=== PATIENT | male | born 1950 | race Caucasian/White ===

== ENCOUNTER 2016-06-25 09:22 | Outpatient (RCR) | payer BC ==
[~2016-06-25 09:22] MED LIST: ASPI-999 PO; METO-387 PO
[2016-06-25 09:39] LABS: BASOPHILS % (AUTO) 0 % (0-10); EOSINOPHILS # (AUTO) 0.1 10^3/uL (0.0-0.3); EOSINOPHILS % (AUTO) 2 % (0-10); LYMPHOCYTES % (AUTO) 23 % (12-44); MEAN CORPUSCULAR HEMOGLOBIN 31 PG (25-34); MEAN CORPUSCULAR HGB CONC 35 G/DL (32-36); MEAN CORPUSCULAR VOLUME 89 FL (80-99); MEAN PLATELET VOLUME 8.8 FL (7.4-10.4); MONOCYTES # (AUTO) 0.4 X 10^3 (0.0-1.0); MONOCYTES % (AUTO) 9 % (0-12); NEUTROPHILS % (AUTO) 66 % (42-75); PLATELET COUNT 162 10^3/uL (130-400); RED CELL DISTRIBUTION WIDTH 14.4 % (10.0-14.5); WHITE BLOOD COUNT 4.6 10^3/uL (4.3-11.0)
[2016-06-25 10:17] LABS: ALANINE AMINOTRANSFERASE 32 U/L (0-55); ALBUMIN 4.3 G/DL (3.2-4.5); ANION GAP 8 MMOL/L (5-14); ASPARTATE AMINO TRANSFERASE 23 U/L (5-34); BILIRUBIN,TOTAL 1.1 MG/DL (0.1-1.0); BLOOD UREA NITROGEN 11 MG/DL (7-18); BUN/CREATININE RATIO 11; CALCIUM 9.1 MG/DL (8.5-10.1); CARBON DIOXIDE 27 MMOL/L (21-32); CHLORIDE 106 MMOL/L (98-107); CREATININE SERUM 1.01 MG/DL (0.60-1.30); GFR ESTIMATED > 60; GLUCOSE 101 MG/DL (70-105); POTASSIUM 4.1 MMOL/L (3.6-5.0); SODIUM 141 MMOL/L (135-145); TOTAL PROTEIN 6.5 G/DL (6.4-8.2)
== END 2016-09-23 | disposition home or self-care (01) ==
LOC: ONC 09:22
PROVIDERS: ATTEND Internal Medicine Hematology & Oncology
DX: Z08 Encounter for follow-up examination after completed treatment for malignant neoplasm (principal); Z85.831 Personal history of malignant neoplasm of soft tissue; Z86.010 Personal history of colon polyps; Z79.899 Other long term (current) drug therapy
CPT/HCPCS: 36415; 80053; 85025; 99213

== ENCOUNTER 2017-07-01 08:50 | Outpatient (RCR) | payer BC ==
[2017-07-01 09:01] LABS: BASOPHILS % (AUTO) 1 % (0-10); EOSINOPHILS # (AUTO) 0.1 10^3/uL (0.0-0.3); EOSINOPHILS % (AUTO) 2 % (0-10); HEMATOCRIT 40 % (40-54); HEMOGLOBIN 13.8 G/DL (13.3-17.7); LYMPHOCYTES % (AUTO) 21 % (12-44); MEAN CORPUSCULAR HEMOGLOBIN 31 PG (25-34); MEAN CORPUSCULAR HGB CONC 34 G/DL (32-36); MEAN CORPUSCULAR VOLUME 91 FL (80-99); MEAN PLATELET VOLUME 9.2 FL (7.4-10.4); MONOCYTES # (AUTO) 0.4 X 10^3 (0.0-1.0); MONOCYTES % (AUTO) 9 % (0-12); NEUTROPHILS # (AUTO) 3.1 X 10^3 (1.8-7.8); NEUTROPHILS % (AUTO) 68 % (42-75); PLATELET COUNT 171 10^3/uL (130-400); RED BLOOD COUNT 4.43 10^6/uL (4.35-5.85); RED CELL DISTRIBUTION WIDTH 14.1 % (10.0-14.5); WHITE BLOOD COUNT 4.7 10^3/uL (4.3-11.0)
[2017-07-01 09:25] LABS: ALANINE AMINOTRANSFERASE 31 U/L (0-55); ALBUMIN 4.4 GM/DL (3.2-4.5); ALKALINE PHOSPHATASE 66 U/L (40-136); BILIRUBIN,TOTAL 0.9 MG/DL (0.1-1.0); BUN/CREATININE RATIO 13; CALCIUM 9.3 MG/DL (8.5-10.1); CARBON DIOXIDE 27 MMOL/L (21-32); CHLORIDE 104 MMOL/L (98-107); CREATININE SERUM 0.95 MG/DL (0.60-1.30); GFR ESTIMATED > 60; GLUCOSE 96 MG/DL (70-105); POTASSIUM 4.3 MMOL/L (3.6-5.0); SODIUM 140 MMOL/L (135-145); TOTAL PROTEIN 6.7 GM/DL (6.4-8.2)
== END 2017-09-29 | disposition home or self-care (01) ==
LOC: ONC 08:50
PROVIDERS: ATTEND Internal Medicine Hematology & Oncology
DX: Z08 Encounter for follow-up examination after completed treatment for malignant neoplasm (principal); Z85.831 Personal history of malignant neoplasm of soft tissue; Z86.010 Personal history of colon polyps; Z79.899 Other long term (current) drug therapy
CPT/HCPCS: 36415; 80053; 83615; 85025; 99213

== ENCOUNTER → 2019-03-06 | Outpatient (CLI) | payer BC ==
--- NOTE | 2019-03-06 12:34 | Diagnostic Imaging Report ---
PROCEDURE: US left lower extremity venous. TECHNIQUE: Multiple real-time grayscale images were obtained over the left lower extremity in various projections. Additional duplex Doppler and color Doppler images were also obtained. INDICATION: Left leg swelling. FINDINGS: There is no evidence of a left lower extremity DVT. A left lower extremity deep venous system demonstrates normal compressibility with normal response to augmentation and Valsalva. No fluid collection or mass is seen. IMPRESSION: No evidence of left lower extremity DVT. Dictated by: Dictated on workstation # [id number]
== END ==
LOC: RAD 10:50
PROVIDERS: ATTEND Internal Medicine Cardiovascular Disease
DX: M79.89 Other specified soft tissue disorders (principal)

== ENCOUNTER 2019-03-28 14:48 | Outpatient (CLI) | payer BC ==
[~2019-03-28] VITALS: Ht 185 cm; Wt 100.0 kg
[2019-03-28] MEDS ORDERED: LISI10TA2 PO (15:25)
[2019-03-28] MEDS ORDERED: ASPI-999 PO (15:25)
[2019-03-28] MEDS ORDERED: TAMS0.4C98 PO (15:25)
[2019-03-28] MEDS ORDERED: DILT240C90 PO (15:25)
== END 2019-03-28 15:00 | disposition home or self-care (01) ==
LOC: PREOP 14:48
PROVIDERS: ATTEND Surgery
DX: Z01.818 Encounter for other preprocedural examination (principal)

== ENCOUNTER 2019-04-10 17:23 | Emergency (ER) | payer BC ==
[~2019-04-10] VITALS: Ht 185.4 cm; Wt 100.0 kg
[~2019-04-10 17:23] MED LIST changes: +DILT240C90 PO; +LISI10TA2 PO; -METO-387 PO; +MTP25TSR PO; +TMSL.4C PO
[2019-04-10] MEDS ORDERED: NS IV 1000 ML 1,000 ML IV SCH ×2 (17:28→18:17)
[2019-04-10 17:36] LABS: BASOPHILS % (AUTO) 0 % (0-10); EOSINOPHILS # (AUTO) 0.1 10^3/uL (0.0-0.3); EOSINOPHILS % (AUTO) 2 % (0-10); HEMATOCRIT 40 % (40-54); HEMOGLOBIN 13.8 G/DL (13.3-17.7); LYMPHOCYTES # (AUTO) 1.5 X 10^3 (1.0-4.0); LYMPHOCYTES % (AUTO) 28 % (12-44); MEAN CORPUSCULAR HEMOGLOBIN 31 PG (25-34); MEAN CORPUSCULAR HGB CONC 34 G/DL (32-36); MEAN CORPUSCULAR VOLUME 89 FL (80-99); MEAN PLATELET VOLUME 9.5 FL (7.4-10.4); MONOCYTES # (AUTO) 0.5 X 10^3 (0.0-1.0); MONOCYTES % (AUTO) 9 % (0-12); NEUTROPHILS # (AUTO) 3.4 X 10^3 (1.8-7.8); NEUTROPHILS % (AUTO) 61 % (42-75); PLATELET COUNT 181 10^3/uL (130-400); RED CELL DISTRIBUTION WIDTH 13.9 % (10.0-14.5); WHITE BLOOD COUNT 5.5 10^3/uL (4.3-11.0)
[2019-04-10 17:51] LABS: ALBUMIN 4.5 GM/DL (3.2-4.5); BILIRUBIN,TOTAL 0.6 MG/DL (0.1-1.0); CREATININE SERUM 1.24 MG/DL (0.60-1.30); POTASSIUM 3.7 MMOL/L (3.6-5.0); TOTAL PROTEIN 6.9 GM/DL (6.4-8.2)
[2019-04-10 17:57] LABS: PROTHROMBIN TIME PATIENT 13.6 SEC (12.2-14.7)
--- NOTE | 2019-04-10 18:11 | ED GI ---
General Chief Complaint: Abdominal/GI Problems Stated Complaint: DIZZINESS Nursing Triage Note: Pt to ED via EMS. Pt reports having a colonoscopy performed by Dr. Street last Wednesday. Pt reports no complications until today. Pt went to restroom and thought was going to have a bowel movement. Toilet was then filled with blood. Pt went back to desk and became very weak. Pt called boss and stated, "I am going down." Pt's boss called EMS. Sepsis Screen: No Definite Risk Source of Information: Patient, Spouse Exam Limitations: No Limitations History of Present Illness Date Seen by Provider: Apr 10, 2019 Time Seen by Provider: 17:57 Initial Comments Patient presents to ER by EMS from work with chief complaint that he had some rumbling in his abdomen and went to the bathroom and had a large red bloody stool. He says it was loose. He had an normal bowel movement earlier today that was unremarkable. He had colonoscopy [address] Street for polyp removals. He's had a history of partial colectomy secondary to diverticulitis in the past as well as multiple endoscopies for polyps. He denies a history of FAP. This is the first time she's ever had bleeding after a colonoscopy. He is not having any abdominal discomfort now. He says he got worried about this started feeling lightheaded like he does not pass out so he called his boss to call Luanne Pierre for them because as they were walking out of his office he had to s it down because he felt like his about to faint. He has no history of passing out. He is on 81 mg aspirin daily but no blood thinners or other antiplatelets. He does take lisinopril and diltiazem. Allergies and Home Medications Allergies Coded Allergies: No Known Drug Allergies (Unverified , 03/28/19) Home Medications Aspirin 81 Mg Tab.chew, 81 MG PO DAILY, (Reported) Diltiazem HCl 240 Mg Cap.er.24h, 240 MG PO DAILY, (Reported) Lisinopril 10 Mg Tablet, 10 MG PO DAILY, (Reported) Tamsulosin HCl 0.4 Mg Cap, 0.4 MG PO DAILY, (Reported) Patient Home Medication List Home Medication List Reviewed: Yes Review of Systems Review of Systems Constitutional: No chills, No fever, No malaise EENTM: No Blurred Vision, No Double Vision Respiratory: Denies Cough, Denies Shortness of Air Cardiovascular: Denies Chest Pain, Denies Lightheadedness Gastrointestinal: See HPI; Denies Constipated; Diarrhea; Denies Nausea Genitourinary: Denies Burning, Denies Discharge Musculoskeletal: No back pain, No joint pain All Other Systems Reviewed Negative Unless Noted: Yes Past Umoaukg-Qqupxk-Usclpw Hx Patient Social History Alcohol Use: Denies Use Recreational Drug Use: No Smoking Status: Never a Smoker Former Smoker, Quit: Jul 14, 1977 2nd Hand Smoke Exposure: Yes Recent Foreign Travel: No Contact w/Someone Who Travel: No Recent Infectious Disease Expo: No Recent Hopitalizations: No Immunizations Up To Date Tetanus Booster (TDap): More than 5yrs PED Vaccines UTD: No Seasonal Allergies Seasonal Allergies: No Past Medical History Surgeries: Yes (partial COLON RESECTION FOR CANCEROUS POLYP, LUMP FROM LEG) Abdominal Respiratory: No Cardiac: Yes (recent stress test-palpations) Hypertension, Irregular Heartbeat Neurological: No Reproductive Disorders: No Sexually Transmitted Disease: No HIV/AIDS: No Genitourinary: No Gastrointestinal: Yes (HX OF POLYPS, COLON CANCER) Polyps Musculoskeletal: No Endocrine: No HEENT: No Loss of Vision: Denies Hearing Impairment: Denies Cancer: Yes Colon Did You Recieve Any Treatments: Yes What Type of Treatment Did You: Surgical Intervention Psychosocial: No Integumentary: No Blood Disorders: No Adverse Reaction/Blood Tranf: No (N/A) Family Medical History No Pertinent Family Hx Physical Exam Vital Signs Vital Signs - First Documented 04/10/19 17:23 Temp 36.9 Pulse 64 Resp 15 B/P (MAP) 94/52 (66) Pulse Ox 98 O2 Delivery Room Air Capillary Refill : Less Than 3 Seconds Height/Weight/BMI Height: 6'1.00" Weight: 213lbs. 0.0oz. 96.331065mz; 29.00 BMI Method:Stated General Appearance: WD/WN, no apparent distress HEENT: PERRL/EOMI, pharynx normal Neck: full range of motion, normal inspection Respiratory: no respiratory distress, no accessory muscle use Cardiovascular: normal peripheral pulses, regular rate, rhythm Gastrointestinal: normal bowel sounds, non tender, soft, no organomegaly, other (Negative for mesenteric signs) Neurologic/Psychiatric: alert, normal mood/affect, oriented x 3 Skin: normal color, warm/dry Progress/Results/Core Measures Results/Orders Lab Results Laboratory Tests Test 04/10/19 17:25 Range/Units White Blood Count 5.5 4.3-11.0 10^3/uL Red Blood Count 4.51 4.35-5.85 10^6/uL Hemoglobin 13.8 13.3-17.7 G/DL Hematocrit 40 40-54 % Mean Corpuscular Volume 89 80-99 FL Mean Corpuscular Hemoglobin 31 25-34 PG Mean Corpuscular Hemoglobin Concent 34 32-36 G/DL Red Cell Distribution Width 13.9 10.0-14.5 % Platelet Count 181 130-400 10^3/uL Mean Platelet Volume 9.5 7.4-10.4 FL Neutrophils (%) (Auto) 61 42-75 % Lymphocytes (%) (Auto) 28 12-44 % Monocytes (%) (Auto) 9 0-12 % Eosinophils (%) (Auto) 2 0-10 % Basophils (%) (Auto) 0 0-10 % Neutrophils # (Auto) 3.4 1.8-7.8 X 10^3 Lymphocytes # (Auto) 1.5 1.0-4.0 X 10^3 Monocytes # (Auto) 0.5 0.0-1.0 X 10^3 Eosinophils # (Auto) 0.1 0.0-0.3 10^3/uL Basophils # (Auto) 0.0 0.0-0.1 10^3/uL Prothrombin Time 13.6 12.2-14.7 SEC INR Comment 1.0 0.8-1.4 Activated Partial Thromboplast Time 23 L 24-35 SEC Sodium Level 138 135-145 MMOL/L Potassium Level 3.7 3.6-5.0 MMOL/L Chloride Level 103 98-107 MMOL/L Carbon Dioxide Level 22 21-32 MMOL/L Anion Gap 13 5-14 MMOL/L Blood Urea Nitrogen 15 7-18 MG/DL Creatinine 1.24 0.60-1.30 MG/DL Estimat Glomerular Filtration Rate 58 BUN/Creatinine Ratio 12 Glucose Level 113 H 70-105 MG/DL Calcium Level 9.0 8.5-10.1 MG/DL Corrected Calcium 8.6 8.5-10.1 MG/DL Total Bilirubin 0.6 0.1-1.0 MG/DL Aspartate Amino Transf (AST/SGOT) 15 5-34 U/L Alanine Aminotransferase (ALT/SGPT) 19 0-55 U/L Alkaline Phosphatase 65 40-136 U/L Total Protein 6.9 6.4-8.2 GM/DL Albumin 4.5 3.2-4.5 GM/DL My Orders Orders - HAM CAREY Orthostatic Vital Signs (Adult (04/10/19 18:07) Acute Abd Series (04/10/19 18:11) Ed Iv/Invasive Line Start (04/10/19 18:17) Ns Iv 1000 Ml (Sodium Chloride 0.9%) (04/10/19 18:17) Vital Signs/I&O 04/10/19 04/10/19 04/10/19 17:23 18:13 21:02 Temp 36.9 Pulse 64 56 51 60 54 65 63 Resp 15 B/P (MAP) 94/52 (66) 124/63 (83) 135/70 (91) 122/60 (80) 122/68 (86) 104/61 (75) 109/66 (80) Pulse Ox 98 O2 Delivery Room Air Blood Pressure Mean: 66 Progress Progress Note #1: Time: 18:14 Progress Note Suspect he's had some GI discomfort related to a slow bleed after polypectomy. We'll get a set of plain films to rule out any free air in the abdomen. He's not requiring anything for pain. His orthostatics are positive so we'll let him get two liters of fluid and recheck him. Progress Note #2: Time: 21:02 Progress Note Repeat orthostatics are positive dropping a systolic 135 down to 109 however he is no longer hypotensive and asymptomatic. We discussed more fluids versus observation stay versus going home and pushing oral fluids. He has elected to do the latter. Diagnostic Imaging Diagonstic Imaging: Xray Plain Films/CT/US/NM/MRI: abdomen Comments NAME: REHAN ARELLANO [facility] REC#: [id number] PT STATUS: REG ER : 1950 PHYSICIAN: HAM CAREY MD ADMIT DATE: 04/10/19/ER Draft Date of Exam:01/20/20 ACUTE ABD SERIES INDICATION: Abdominal pain after recent colonoscopy. COMPARISON: None available. FINDINGS: No free intraperitoneal air. Nonobstructive bowel gas pattern. Air-fluid levels within the colon may relate to a diarrheal state. Lungs are clear. No pleural effusion or pneumothorax. Normal cardiomediastinal silhouette. IMPRESSION: 1. No free intraperitoneal air to indicate colonic perforation. Dictated on workstation # [id number] Dict: 04/10/191905 Trans: 04/10/191907 [facility] [id number] Interpreted by: OSWALDO HOFF MD Electronically signed by: Reviewed: Reviewed by Me Consults : Consulting Physician: TRICIA STREET DO Consults Notes Unless bloody stools become a pattern in which case we could put him in the hospital he would recommend a liquid diet for a couple days until stools care up and keep his follow-up appointments. Departure Impression Primary Impression: Post-polypectomy bleeding Additional Impression: Orthostatic hypotension Disposition: HOME, SELF-CARE Condition: Stable Departure-Patient Inst. Decision time for Depature: 20:21 Referrals: WILBER HARRIS MD (PCP/Family) Primary Care Physician Patient Instructions: Colon Polyps (DC), Gastrointestinal Bleeding Add. Discharge Instructions: I suspect the bleeding is related to the recent polypectomies. It should be a limited of air however if it persists then he would be reasonable to come back to the hospital for a overnight stay and recheck of labs and have Dr. Street see you about possibly repeat performing a colonoscopy. You can call your primary care or the surgeons office to set this up or return to the ER. Stick to a liquid diet for the next 2-3 days until all your symptoms are gone. Expect blood-tinged stool for the next couple days. Do not use Imodium or Pepto-Bismol. All discharge instructions reviewed with patient and/or family. Voiced understanding. Copy Copies To 1: WILBER HARRIS MD, TITUS J Apr 10, 2019 18:10
[2019-04-10 18:13] VITALS: BP_SYST 104; BP_SYST 122; BP_SYST 124; BP_DIAS 60; BP_DIAS 61; BP_DIAS 63
--- NOTE | 2019-04-10 19:08 | Diagnostic Imaging Report ---
INDICATION: Abdominal pain after recent colonoscopy. COMPARISON: None available. FINDINGS: No free intraperitoneal air. Nonobstructive bowel gas pattern. Air-fluid levels within the colon may relate to a diarrheal state. Lungs are clear. No pleural effusion or pneumothorax. Normal cardiomediastinal silhouette. IMPRESSION: 1. No free intraperitoneal air to indicate colonic perforation. Dictated by: Dictated on workstation # [id number]
[2019-04-10 21:02] VITALS: BP_SYST 109; BP_SYST 122; BP_SYST 135; BP_DIAS 66; BP_DIAS 68; BP_DIAS 70
[2019-04-10 21:05] VITALS: BP 105/73
== END 2019-04-10 21:05 | disposition home or self-care (01) ==
LOC: EDUNIT# 17:23 → ER 17:24
DX: K91.840 Postprocedural hemorrhage of a digestive system organ or structure following a digestive system procedure (principal); I95.1 Orthostatic hypotension; I10 Essential (primary) hypertension; Z85.038 Personal history of other malignant neoplasm of large intestine; Z79.82 Long term (current) use of aspirin; Z87.891 Personal history of nicotine dependence; Z77.22 Contact with and (suspected) exposure to environmental tobacco smoke (acute) (chronic)
CPT/HCPCS: 36415; 74022; 80053; 85025; 85610; 85730; 86850; 86900; 86901; 96360; 96361

== ENCOUNTER → 2020-03-12 | Outpatient (CLI) | payer BC | LOC: CARD 09:00 | PROVIDERS: ATTEND Nurse Practitioner Family | DX: I51.7 Cardiomegaly (principal); I35.1 Nonrheumatic aortic (valve) insufficiency | CPT/HCPCS: 93306 ==

== ENCOUNTER 2020-04-29 22:59 | Inpatient (IN) | payer BC, MEDICARE ==
[~2020-04-29] VITALS: Ht 185.4 cm; Wt 104.4 kg
[~2020-04-29 22:59] MED LIST changes: -LISI10TA2 PO; +LISI10TA25 PO
[2020-04-29] MEDS ORDERED: KETOROLAC 30 MG/ML VIAL IVP STA (23:34)
[2020-04-29] MEDS ORDERED: LACTATED RINGERS 1,000 ML IV ONE (23:45)
[2020-04-29 23:48] LABS: BASOPHILS % (AUTO) 0 % (0-10); EOSINOPHILS # (AUTO) 0.1 10^3/uL (0.0-0.3); EOSINOPHILS % (AUTO) 1 % (0-10); HEMATOCRIT 42 % (40-54); LYMPHOCYTES # (AUTO) 0.9 10^3/uL (1.0-4.0); LYMPHOCYTES % (AUTO) 10 % (12-44); MEAN CORPUSCULAR HEMOGLOBIN 30 pg (25-34); MEAN CORPUSCULAR HGB CONC 33 g/dL (32-36); MEAN CORPUSCULAR VOLUME 90 fL (80-99); MEAN PLATELET VOLUME 9.3 fL (9.0-12.2); MONOCYTES # (AUTO) 0.6 10^3/uL (0.0-1.0); MONOCYTES % (AUTO) 6 % (0-12); NEUTROPHILS # (AUTO) 7.3 10^3/uL (1.8-7.8); NEUTROPHILS % (AUTO) 82 % (42-75); PLATELET COUNT 183 10^3/uL (130-400); WHITE BLOOD COUNT 8.8 10^3/uL (4.3-11.0)
[2020-04-30 00:10] LABS: ALANINE AMINOTRANSFERASE 26 U/L (0-55); ALBUMIN 4.4 GM/DL (3.2-4.5); ALKALINE PHOSPHATASE 66 U/L (40-136); AMYLASE 53 U/L (25-125); BILIRUBIN,TOTAL 0.5 MG/DL (0.1-1.0); BUN/CREATININE RATIO 12; CALCIUM 9.1 MG/DL (8.5-10.1); CARBON DIOXIDE 26 MMOL/L (21-32); CHLORIDE 104 MMOL/L (98-107); CREATININE SERUM 1.19 MG/DL (0.60-1.30); GFR ESTIMATED > 60; GLUCOSE 134 MG/DL (70-105); LIPASE 20 U/L (8-78); MAGNESIUM 1.8 MG/DL (1.6-2.4); POTASSIUM 3.6 MMOL/L (3.6-5.0); SODIUM 141 MMOL/L (135-145); TOTAL PROTEIN 6.9 GM/DL (6.4-8.2)
--- NOTE | 2020-04-30 00:28 | ED Abdominal Pain ---
General Chief Complaint: Abdominal/GI Problems Stated Complaint: ABD PAIN Nursing Triage Note: PT AMBULATES TO ROOM #4 FROM POV WITH C/O ABD DISCOMFORT. REPORTS DISCOMFORT BEGAN THIS EVENING AFTER EATING A LARGE DINNER. REPORTS INTERMITTENT, SHARP PAIN TO MEDIAL LOWER ABD WITH SENSATIONS OF BLOATING. REPORTS AFTER ONSET OF DISCOMFORT, HE PASSED A SMALL BOWEL MOVEMENT. REPORTS CONSTIPATION. REPORTS DIFFICULTY URINATING, BUT IS NOT NEW SYMPTOM. AUDIBLE BOWEL SOUNDS NOTED. A&OX4. Sepsis Screen: No Definite Risk Source of Information: Patient History of Present Illness Date Seen by Provider: Apr 29, 2020 Time Seen by Provider: 23:28 Initial Comments PT ARRIVES VIA POV FROM HOME C/O SEVERE PAIN IN SUPRAPUBIC AREA AND SOME IN LEFT MID AND LOWER ABDOMEN--PAIN IS SHARP AND SEVERE AT TIMES--PAIN BEGAN AROUND 2100 TONIGHT, AFTER EATING A VERY LARGE MEAL AROUND 1830 TONIGHT STATES HE FELL ASLEEP IN CHAIR AFTER DINNER AND WOKE UP AT 2100 WITH SEVERE PAIN HAD SMALL BM AT 2100--HAS BEEN CONSTIPATED. NO IMPROVEMENT IN PAIN VOIDED A SMALL AMOUNT AT 2100--STATES HE ALWAYS HAS SOME DIFFICULTY URINATING AND TAKES FLOMAX NO NAUSEA/VOMITING NO FEVER/SWEATS/CHILLS NO BACK PAIN NOTHING WORSENS OR IMPROVES PAIN RATES PAIN 10/10 AT WORST NO HISTORY OF SIMILAR HAD PRIOR COLON RESECTION IN 1994 ( OLD CHARTS REPORT 2002) -OPEN [facility] MY--FOR "PRECANCEROUS COLON POLYP". PT MOST RECENTLY FOLLOWED BY DR. STREET FOR COLONOSCOPIES PCP: DR. Justine HARRIS EARLY HEAD START TEACHER: DR. CONTI SURGEON: DR. STREET Allergies and Home Medications Allergies Coded Allergies: No Known Drug Allergies (Unverified , 03/28/19) Home Medications Aspirin 81 Mg Tab.chew, 81 MG PO DAILY, (Reported) Diltiazem HCl 240 Mg Cap.er.24h, 240 MG PO DAILY, (Reported) Lisinopril 10 Mg Tablet, 10 MG PO DAILY, (Reported) Tamsulosin HCl 0.4 Mg Cap, 0.4 MG PO DAILY, (Reported) Patient Home Medication List Home Medication List Reviewed: Yes Review of Systems Review of Systems Constitutional: no symptoms reported; No chills, No diaphoresis, No fever EENTM: No Symptoms Reported Respiratory: No Symptoms Reported Cardiovascular: No Symptoms Reported Gastrointestinal: See HPI, Abdominal Pain, Constipated; Denies Nausea, Denies Poor Appetite, Denies Poor Fluid Intake, Denies Vomiting Genitourinary: See HPI; Denies Flank Pain Musculoskeletal: no symptoms reported; No back pain Skin: no symptoms reported Psychiatric/Neurological: No Symptoms Reported Endocrine: No Symptoms Reported Hematologic/Lymphatic: No Symptoms Reported Past Ppgmfyx-Pbautg-Ixnogf Hx Past Med/Social Hx: Reviewed and Corrections made Patient Social History Alcohol Use: Rarely Uses Drug of Choice: DENIES Smoking Status: Former Smoker (QUIT 1977) Former Smoker, Quit: Jul 14, 1977 2nd Hand Smoke Exposure: Yes Recent Infectious Disease Expo: No Recent Hopitalizations: No Immunizations Up To Date Tetanus Booster (TDap): More than 5yrs PED Vaccines UTD: No Seasonal Allergies Seasonal Allergies: No Past Medical History Surgeries: Yes (SEE BELOW) Abdominal Respiratory: No Cardiac: Yes (A FIB--NO ANTICOAGULATION / 81 MG ASPIRIN ONLY. 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) Endocrine: No HEENT: No Loss of Vision: Denies Hearing Impairment: Denies Cancer: Yes ("PRECANCEROUS COLON POLYPS" PER PT) Colon Did You Recieve Any Treatments: Yes What Type of Treatment Did You: Surgical Intervention CANCEROUS VS "PRECANCEROUS POLYPS" --S/P LOW ANTERIOR SIGMOID RESECTION LOW GRADE LEFT INGUINAL AREA REMOVED 08/1992 NO CHEMO OR RADIATION HAS BEEN RELEASED BY ONCOLOGY AND NO LONGER FOLLOWS WITH THEM, PER PT 04/29/20 Psychosocial: No Integumentary: No Blood Disorders: No Adverse Reaction/Blood Tranf: No (N/A) Family Medical History No Pertinent Family Hx SOCIAL HISTORY: -RARE ETOH USE -DENIES DRUG USE -SMOKED 1 PPD, QUIT 1977 SURGICAL HISTORY: -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 STREET. Physical Exam Vital Signs Vital Signs - First Documented 04/29/20 23:28 Temp 36.4 Pulse 82 Resp 18 B/P (MAP) 152/80 (104) Pulse Ox 97 O2 Delivery Room Air Capillary Refill : Less Than 3 Seconds Height/Weight/BMI Height: 6'1.00" Weight: 213lbs. 0.0oz. 96.969222mb; 29.00 BMI Method:Stated General Appearance: WD/WN, no apparent distress (BUT LOOKS UNCOMFORTABLE) HEENT: PERRL/EOMI Neck: normal inspection Respiratory: normal breath sounds, no respiratory distress, no accessory muscle use Cardiovascular: regular rate, rhythm, no murmur Gastrointestinal: abnormal bowel sounds (HYPERACTIVE), distended (AND VERY FIRM), tenderness (DIFFUSE LOWER ABDOMINAL TENDERNESS, "PRESSURE" DISCOMFORT ON PALPATION OVER REST OF ABDOMEN) Extremities: normal range of motion, non-tender, no calf tenderness, normal capillary refill, pedal edema (1+ EDEMA ON LEFT--PT STATES IS NORMAL AND CHRONIC ( HX OF REMOVAL OF LIPOSARCOMA LEFT GROIN) ) Back: no CVA tenderness Neurologic/Psychiatric: telephone appointment clerk II-XII nml as tested, no motor/sensory deficits, alert, oriented x 3 Skin: normal color, warm/dry; No rash Progress/Results/Core Measures Results/Orders Lab Results Laboratory Tests Test 04/29/20 23:40 Range/Units White Blood Count 8.8 4.3-11.0 10^3/uL Red Blood Count 4.66 4.30-5.52 10^6/uL Hemoglobin 14.0 13.3-17.7 g/dL Hematocrit 42 40-54 % Mean Corpuscular Volume 90 80-99 fL Mean Corpuscular Hemoglobin 30 25-34 pg Mean Corpuscular Hemoglobin Concent 33 32-36 g/dL Red Cell Distribution Width 13.6 10.0-14.5 % Platelet Count 183 130-400 10^3/uL Mean Platelet Volume 9.3 9.0-12.2 fL Immature Granulocyte % (Auto) 1 % Neutrophils (%) (Auto) 82 H 42-75 % Lymphocytes (%) (Auto) 10 L 12-44 % Monocytes (%) (Auto) 6 0-12 % Eosinophils (%) (Auto) 1 0-10 % Basophils (%) (Auto) 0 0-10 % Neutrophils # (Auto) 7.3 1.8-7.8 10^3/uL Lymphocytes # (Auto) 0.9 L 1.0-4.0 10^3/uL Monocytes # (Auto) 0.6 0.0-1.0 10^3/uL Eosinophils # (Auto) 0.1 0.0-0.3 10^3/uL Basophils # (Auto) 0.0 0.0-0.1 10^3/uL Immature Granulocyte # (Auto) 0.0 0.0-0.1 10^3/uL Sodium Level 141 135-145 MMOL/L Potassium Level 3.6 3.6-5.0 MMOL/L Chloride Level 104 98-107 MMOL/L Carbon Dioxide Level 26 21-32 MMOL/L Anion Gap 11 5-14 MMOL/L Blood Urea Nitrogen 14 7-18 MG/DL Creatinine 1.19 0.60-1.30 MG/DL Estimat Glomerular Filtration Rate > 60 BUN/Creatinine Ratio 12 Glucose Level 134 H 70-105 MG/DL Calcium Level 9.1 8.5-10.1 MG/DL Corrected Calcium 8.8 8.5-10.1 MG/DL Magnesium Level 1.8 1.6-2.4 MG/DL Total Bilirubin 0.5 0.1-1.0 MG/DL Aspartate Amino Transf (AST/SGOT) 18 5-34 U/L Alanine Aminotransferase (ALT/SGPT) 26 0-55 U/L Alkaline Phosphatase 66 40-136 U/L Total Protein 6.9 6.4-8.2 GM/DL Albumin 4.4 3.2-4.5 GM/DL Amylase Level 53 25-125 U/L Lipase 20 8-78 U/L My Orders Orders - CAS GUIDRY DO Ed Iv/Invasive Line Start (04/29/20 23:34) Monitor-Rhythm Ecg Trace Only (04/29/20 23:34) Ct Abd/Pelvis Wo(Kidney Stone) (04/29/20 23:34) Amylase (04/29/20 23:34) Cbc With Automated Diff (04/29/20 23:34) Comprehensive Metabolic Panel (04/29/20 23:34) Lipase (04/29/20 23:34) Magnesium (04/29/20 23:34) Ua Culture If Indicated (04/29/20 23:34) Ed Iv/Invasive Line Start (04/29/20 23:34) Lactated Ringers (Lr 1000 Ml Iv Solution (04/29/20 23:45) Ketorolac Injection (Toradol Injection) (04/29/20 23:34) Acute Abd Series (04/30/20 00:01) Ng Tube Insert & Assessment (04/30/20 00:49) Medications Given in ED Current Medications Medications Dose Ordered Sig/Parvin Route Start Time Stop Time Status Last Admin Dose Admin Benzocaine 1 ea STK-MED ONCE .ROUTE 04/30/20 00:46 04/30/20 00:52 DC 04/30/20 01:15 1 EA Lactated Ringer's 1,000 ml @ 0 mls/hr Q0M ONCE IV 04/29/20 23:45 04/29/20 23:46 DC 04/29/20 23:45 0 MLS/HR Vital Signs/I&O 04/29/20 23:28 Temp 36.4 Pulse 82 Resp 18 B/P (MAP) 152/80 (104) Pulse Ox 97 O2 Delivery Room Air Blood Pressure Mean: 104 Progress Progress Note : Progress Note GIVEN TORADOL WITH MUCH IMPROVEMENT IN PAIN NG TUBE PLACED NO DETERIORATION IN PT'S CONDITION DURING ER STAY Diagnostic Imaging Comments ABDOMEN XRAYS--??SBO? PENDING RADIOLOGIST REVIEW CT ABDOMEN/PELVIS--HIGH GRADE DISTAL SMALL BOWEL OBSTRUCTION, WITH TRANSITION ZONE IN RLQ--PER [facility] VIA FAX AT 3538 Reviewed: Reviewed by Me Departure Communication (Admissions) 0047--SPOKE WITH DR. STREET, ACCEPTS PT FOR ADMIT. Impression Primary Impression: Small bowel obstruction Additional Impression: HX OF COLON RESECTION FOR CANCEROUS POLYPS Disposition: ADMITTED INPATIENT Condition: Stable Admissions Decision to Admit Reason: Admit from ER (General) Decision to Admit/Date: Apr 30, 2020 Time/Decision to Admit Time: 00:45 Departure-Patient Inst. Referrals: WILBER HARRIS MD (PCP/Family) Primary Care Physician CAS GUIDRY DO Apr 30, 2020 00:28
[2020-04-30] MEDS ORDERED: HURRICAINE EXT TUBE (BENZOCAINE) ONE (00:46)
[2020-04-30 02:30] VITALS: BP 140/73
[2020-04-30] MEDS ORDERED: fentaNYL INJECTION 100 MCG/2 ML AMP IVP PRN (03:15)
[2020-04-30 03:58] LABS: BILIRUBIN,URINE NEGATIVE (NEGATIVE); CLARITY,URINE CLEAR; COLOR,URINE YELLOW; GLUCOSE, URINE (UA) NEGATIVE (NEGATIVE); KETONES,URINE NEGATIVE (NEGATIVE); LEUKOCYTE ESTERASE ,URINE NEGATIVE (NEGATIVE); NITRITE,URINE NEGATIVE (NEGATIVE); PROTEIN,URINE TRACE (NEGATIVE)
[2020-04-30 04:10] LABS: BACTERIA,URINE NEGATIVE /HPF; SQUAMOUS EPITHELIAL CELL,UR 0-2 /HPF
[2020-04-30] MEDS: D5 1/2 NS W/KCL 20 MEQ/L 1,000 ML IV SCH ×4 (04:16→22:06)
[2020-04-30 05:05] LABS: BASOPHILS % (AUTO) 0 % (0-10); EOSINOPHILS % (AUTO) 0 % (0-10); HEMATOCRIT 39 % (40-54); HEMOGLOBIN 13.2 g/dL (13.3-17.7); LYMPHOCYTES # (AUTO) 0.7 10^3/uL (1.0-4.0); LYMPHOCYTES % (AUTO) 8 % (12-44); MEAN CORPUSCULAR HEMOGLOBIN 30 pg (25-34); MEAN CORPUSCULAR HGB CONC 34 g/dL (32-36); MEAN CORPUSCULAR VOLUME 90 fL (80-99); MONOCYTES # (AUTO) 0.5 10^3/uL (0.0-1.0); MONOCYTES % (AUTO) 6 % (0-12); NEUTROPHILS # (AUTO) 7.6 10^3/uL (1.8-7.8); NEUTROPHILS % (AUTO) 86 % (42-75); PLATELET COUNT 199 10^3/uL (130-400); WHITE BLOOD COUNT 8.9 10^3/uL (4.3-11.0)
[2020-04-30 05:13] LABS: ALBUMIN 3.9 GM/DL (3.2-4.5); CHLORIDE 103 MMOL/L (98-107); SODIUM 139 MMOL/L (135-145)
[2020-04-30 05:15] LABS: CALCIUM 8.6 MG/DL (8.5-10.1)
[2020-04-30 05:16] LABS: GLUCOSE 113 MG/DL (70-105); TOTAL PROTEIN 5.9 GM/DL (6.4-8.2)
[2020-04-30 05:17] LABS: BILIRUBIN,TOTAL 0.6 MG/DL (0.1-1.0); CARBON DIOXIDE 24 MMOL/L (21-32)
[2020-04-30 05:19] LABS: ALKALINE PHOSPHATASE 60 U/L (40-136); CREATININE SERUM 0.98 MG/DL (0.60-1.30); GFR ESTIMATED > 60
[2020-04-30 05:20] LABS: BUN/CREATININE RATIO 14
[2020-04-30 05:22] LABS: ALANINE AMINOTRANSFERASE 24 U/L (0-55)
[2020-04-30] MEDS: ONDANSETRON 4 MG/2 ML (SDV) Z0FRAN IVP PRN ×2 (05:48→07:57)
[2020-04-30] MEDS: PANTOPRAZOLE 40 MG (PROTONIX) VIAL IV SCH (07:56)
--- NOTE | 2020-04-30 08:03 | Diagnostic Imaging Report ---
INDICATION: NG tube insertion COMPARISON: Imaging from the same date TECHNIQUE: Single radiograph of the chest dated 04/30/2020 FINDINGS: Enteric catheter is present with the sidehole within the left upper abdomen, likely within the body of the stomach. The distal tip is not completely included within the [id number]. The cardiac silhouette is borderline enlarged. No significant pulmonary vascular congestion. Low lung volumes without focal pulmonary opacity. No pleural effusion. No pneumothorax. No acute osseous abnormality. IMPRESSION: Enteric catheter is present extending into the stomach as above. Low lung volumes without focal pulmonary consolidation. Dictated by: Dictated on workstation # [id number]
--- NOTE | 2020-04-30 08:17 | Diagnostic Imaging Report ---
INDICATION: Evaluate gastric tube. COMPARISON: 04/30/2020 FINDINGS: Single frontal radiograph view of the abdomen was obtained and demonstrates indwelling gastric tube with tip in the stomach. Included small bowel loops are nondistended. IMPRESSION: 1. Indwelling gastric tube with tip in the stomach. Dictated by: Dictated on workstation # [id number]
--- NOTE | 2020-04-30 08:30 | Diagnostic Imaging Report ---
INDICATION: Pain FINDINGS: No focal pulmonary consolidation. No failure, effusion or pneumothorax. There is mild air-containing small bowel ectasia in the mid abdomen and upper pelvis. There is some stool in the colon. The colonic fecal load not grossly pathologic. In upright views there is some left flank scattered air-fluid levels. Overall the magnitude of small bowel dilatation and small bowel fecalization is at least somewhat improved from the CT of one day earlier. IMPRESSION: Small bowel dilatation and small bowel fecalization likely at least mildly improved from a earlier CT of the chest is nonacute. There is no free air. Dictated by: Dictated on workstation # [id number]
--- NOTE | 2020-04-30 08:36 | History & Physical-Surgical ---
KATHY REID MED STUDENT 04/30/20 0836: History of Present Illness History of Present Illness Reason for visit/HPI Pt is a 69y/o M with PMH of BPH, Afib, and HTN who presented to ED last night with acute abd pain and abd distension. The abd pain was decribed as 10/10 last night and intermittent- the pt described the pain as diffuse and sharp. The pain originally started a couple hrs after eating a large dinner last night, states he felt the urge to pass stool and managed to pass stool- described as normal caliber without melena or hematochezia. This morning while visiting the abd pain is 1/10 and the pt is experiencing N/Ving. The pt did not have any N/Ving until now- I visualized the pts emesis- it was without blood. Pt has a PSH of sigmoid resection in 2002- pt states its /2 a suspiscious polyp on a colonoscopy. Pts most recent colonscopy was with Dr. Street is early this year, three polyps were removed, pathology showed 3 tubular adenomas. ROS was negative for dysphagia, chest pain, palpatations, hematochezia, melena, or fever. Pt denies ever having these sxs before. Pt last passed gas at 06:00 this morning, no stool. Date of Admission Apr 30, 2020 at 00:50 Date Seen by a Provider: Apr 30, 2020 Time Seen by a Provider: 07:35 I consulted on this patient on 04/30/20 08:[address] DO Admitting Physician Kel Juarez MD Consult Allergies and Home Medications Allergies Coded Allergies: No Known Drug Allergies (Unverified , 03/28/19) Home Medications Aspirin 81 Mg Tab.chew, 81 MG PO DAILY, (Reported) Diltiazem HCl 240 Mg Cap.er.24h, 240 MG PO DAILY, (Reported) Lisinopril 10 Mg Tablet, 10 MG PO DAILY, (Reported) Tamsulosin HCl 0.4 Mg Cap, 0.4 MG PO DAILY, (Reported) Past Wmfnjyk-Jtbove-Imzezh Hx Patient Social History Drug of Choice: DENIES Smoking Status: Former Smoker (4-5 Pack year hx ) Former Smoker, Quit: Jul 14, 1977 2nd Hand Smoke Exposure: Yes Recent Hopitalizations: No Alcohol Use?: No Have you traveled recently?: No Immunizations Up To Date Tetanus Booster (TDap): More than 5yrs PED Vaccines UTD: No Seasonal Allergies Seasonal Allergies: No Surgeries History of Surgeries: Yes (SEE BELOW) Surgeries: Abdominal (lower anterior sigmoid resection in 2002 ) Respiratory History of Respiratory Disorde: No Cardiovascular History of Cardiac Disorders: Yes (A FIB--NO ANTICOAGULATION / 81 MG ASPIRIN ONLY. 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 ) Review of Systems Constitutional: No diaphoresis, No fever EENTM: No throat pain, No throat swelling Respiratory: No cough, No dyspnea on exertion, No short of breath Cardiovascular: No chest pain, No palpitations Gastrointestinal: No abdominal pain, No constipation, No diarrhea, No dysphagia Genitourinary: No dysuria; hesitancy (BPH hx ) Musculoskeletal: No muscle pain, No muscle stiffness Skin: No change in color, No change in hair/nails Psychiatric/Neurological: Denies Paresthesia, Denies Tremors Physical Exam Vital Signs Vital Signs - First Documented 04/29/20 23:28 Temp 36.4 Pulse 82 Resp 18 B/P (MAP) 152/80 (104) Pulse Ox 97 O2 Delivery Room Air Capillary Refill : Less Than 3 Seconds Height, Weight, BMI Height: 6'1.00" Weight: 213lbs. 0.0oz. 96.968023at; 30.37 BMI Method:Stated General Appearance: WD/WN, Mild Distress (due to nausea) HEENT: PERRL/EOMI, Moist Mucous Membranes Neck: Full Range of Motion, Normal Inspection, Non Tender Respiratory: Chest Non Tender, Lungs Clear, Normal Breath Sounds, No Accessory Muscle Use, No Respiratory Distress Cardiovascular: No Murmur, Irregularly Irregular (afib hx) Gastrointestinal: Normal Bowel Sounds, No Organomegaly; No Distended, No Guarding; Tenderness (diffuse) Rectal: Deferred Back: Normal Inspection, No CVA Tenderness, No Vertebral Tenderness Extremity: Normal Capillary Refill, Normal Inspection, Non Tender, No Calf Tenderness, Swelling (unilateral- Left side is 3+) Neurologic/Psychiatric: Alert, Oriented x3, No Motor/Sensory Deficits, Normal Mood/Affect, solar 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 Norm as Tested Skin: Normal Color, Warm/Dry Lymphatic: No Adenopathy Data Review Labs Laboratory Tests 04/29/20 23:40: White Blood Count 8.8, Red Blood Count 4.66, Hemoglobin 14.0, Hematocrit 42, Mean Corpuscular Volume 90, Mean Corpuscular Hemoglobin 30, Mean Corpuscular Hemoglobin Concent 33, Red Cell Distribution Width 13.6, Platelet Count 183, Mean Platelet Volume 9.3, Immature Granulocyte % (Auto) 1, Neutrophils (%) (Auto) 82H, Lymphocytes (%) (Auto) 10L, Monocytes (%) (Auto) 6, Eosinophils (%) (Auto) 1, Basophils (%) (Auto) 0, Neutrophils # (Auto) 7.3, Lymphocytes # (Auto) 0.9L, Monocytes # (Auto) 0.6, Eosinophils # (Auto) 0.1, Basophils # (Auto) 0.0, Immature Granulocyte # (Auto) 0.0, Sodium Level 141, Potassium Level 3.6, Chloride Level 104, Carbon Dioxide Level 26, Anion Gap 11, Blood Urea Nitrogen 14, Creatinine 1.19, Estimat Glomerular Filtration Rate > 60, BUN/Creatinine Ratio 12, Glucose Level 134H, Calcium Level 9.1, Corrected Calcium 8.8, Magnesium Level 1.8, Total Bilirubin 0.5, Aspartate Amino Transf (AST/SGOT) 18, Alanine Aminotransferase (ALT/SGPT) 26, Alkaline Phosphatase 66, Total Protein 6.9, Albumin 4.4, Amylase Level 53, Lipase 20 04/30/20 03:40: Urine Color YELLOW, Urine Clarity CLEAR, Urine pH 7.0, Urine Specific Oden 1.020, Urine Protein TRACEH, Urine Glucose (UA) NEGATIVE, Urine Ketones NEGATIVE, Urine Nitrite NEGATIVE, Urine Bilirubin NEGATIVE, Urine Urobilinogen 0.2, Urine Leukocyte Esterase NEGATIVE, Urine RBC (Auto) NEGATIVE, Urine RBC NONE, Urine WBC NONE, Urine Squamous Epithelial Cells 0-2, Urine Crystals NONE, Urine Bacteria NEGATIVE, Urine Casts NONE, Urine Mucus LARGEH, Urine Culture Indicated NO 04/30/20 04:18: White Blood Count 8.9, Red Blood Count 4.39, Hemoglobin 13.2L, Hematocrit 39L, Mean Corpuscular Volume 90, Mean Corpuscular Hemoglobin 30, Mean Corpuscular Hemoglobin Concent 34, Red Cell Distribution Width 13.5, Platelet Count 199, Mean Platelet Volume 10.0, Immature Granulocyte % (Auto) 0, Neutrophils (%) (Auto) 86H, Lymphocytes (%) (Auto) 8L, Monocytes (%) (Auto) 6, Eosinophils (%) (Auto) 0, Basophils (%) (Auto) 0, Neutrophils # (Auto) 7.6, Lymphocytes # (Auto) 0.7L, Monocytes # (Auto) 0.5, Eosinophils # (Auto) 0.0, Basophils # (Auto) 0.0, Immature Granulocyte # (Auto) 0.0, Sodium Level 139, Potassium Level 4.0, Chloride Level 103, Carbon Dioxide Level 24, Anion Gap 12, Blood Urea Nitrogen 14, Creatinine 0.98, Estimat Glomerular Filtration Rate > 60, BUN/Creatinine Ratio 14, Glucose Level 113H, Calcium Level 8.6, Corrected Calcium 8.7, Total Bilirubin 0.6, Aspartate Amino Transf (AST/SGOT) 18, Alanine Aminotransferase (ALT/SGPT) 24, Alkaline Phosphatase 60, Total Protein 5.9L, Albumin 3.9 Assessment/Plan Assessment/Plan Admission Diagonsis SBO Admission Status: Inpatient Order (span 2 midnights) Reason for Inpatient Admission: SBO partial Vs complete Assessment/Plan partial Vs complete SBO - hx of sigmoid resection, passing gas. BPH - home med use of flomax. Afib - aspirin only bloodthinner at home. HTN NPO NG tube placed IV pain control - fentanyl IV nausea control - zofran Hold aspirin, continue SCD. TRICIA STREET DO 04/30/20 1553: History of Present Illness History of Present Illness Reason for visit/HPI Patient is a 69 year old male who began having 10/10 abdominal pain last night. Ate dinner without difficulty fell asleep on chair and work up to distended abdomen. Had a normal bowel movement last nigh, but abdomen still distended. Capay it was a lot of gas. Patient with pain in b/l lower abdomen. Has passed a little gas this morning and had NG tube in which has caused abdomen to significantly decrease. Recently feeling constipated. Has history of sigmoid resection. Having some nausea and one itme emesis. Denies fever sweats chills shortness of breath or chest pain. Had ct scan suggestive of sbo. Allergies and Home Medications Allergies Coded Allergies: No Known Drug Allergies (Unverified , 03/28/19) Home Medications Aspirin 81 Mg Tab.chew, 81 MG PO DAILY, (Reported) Diltiazem HCl 240 Mg Cap.er.24h, 240 MG PO DAILY, (Reported) Lisinopril 10 Mg Tablet, 10 MG PO DAILY, (Reported) Tamsulosin HCl 0.4 Mg Cap, 0.4 MG PO DAILY, (Reported) Patient Home Medication List Home Medication List Reviewed: Yes Past Yzmtcey-Tupzyl-Kniogx Hx Surgeries Surgeries: Abdominal (lower anterior sigmoid resection in 2002 ) Family Medical History Significant Family History: Other Conditions/Hx (Pts father had prostate cancer, no other FH of cancer. ) Review of Systems Constitutional: No diaphoresis, No fever EENTM: No blurred vision, No throat pain, No throat swelling Respiratory: No cough, No dyspnea on exertion, No short of breath Cardiovascular: No chest pain, No palpitations Gastrointestinal: abdominal pain, constipation; No diarrhea, No dysphagia; nausea, vomiting Genitourinary: No dysuria; hesitancy (BPH hx ) Musculoskeletal: No muscle pain, No muscle stiffness Skin: No change in color, No change in hair/nails Psychiatric/Neurological: Denies Paresthesia, Denies Tremors All Other Systems Reviewed Negative Unless Noted: Yes (Negative excepted noted.) Physical Exam General Appearance: No Apparent Distress (sitting in chair), WD/WN HEENT: PERRL/EOMI, Normal ENT Inspection, Other (NG tube) Neck: Full Range of Motion, Non Tender Respiratory: Chest Non Tender, No Accessory Muscle Use, No Respiratory Distress Cardiovascular: No Murmur, Irregularly Irregular (afib hx) Gastrointestinal: Normal Bowel Sounds, No Organomegaly, Distended; No Guarding; Tenderness (minimal diffuse) Rectal: Deferred Back: Normal Inspection, No CVA Tenderness, No Vertebral Tenderness Extremity: Normal Capillary Refill, Normal Inspection, Non Tender, No Calf Tenderness, Swelling (unilateral- Left side) Neurologic/Psychiatric: Alert, Oriented x3, No Motor/Sensory Deficits, Normal Mood/Affect, solar 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 Will stay 2 midnights due to need for further radiological studies and monitoring of patient condition Assessment/Plan partial Vs complete SBO - hx of sigmoid resection, passing gas. BPH - home med use of flomax. Afib - aspirin only bloodthinner at home. HTN NPO NG tube placed Small bowel follow through IV fluids IV pain control - fentanyl IV nausea control - zofran continue SCD. for dvt prophylaxis Hold oral meds Consult Dr. Juarez for medical managment Supervisory-Addendum Brief Verification & Attestation Participated in pt care: history, MDM, physical Personally performed: exam, history, MDM, supervision of care Care discussed with: Medical Student Procedures: n/a Results interpretation: Verified all documentation Verification and Attestation of Medical Student E/M Service A medical student performed and documented this service in my presence. I reviewed and verified all information documented by the medical student and made modifications to such information, when appropriate. I personally performed the physical exam and medical decision making. Tricia Street, Apr 30, 2020,16:00 KATHY REID MED STUDENT Apr 30, 2020 08:[address] DO Apr 30, 2020 15:53
[2020-04-30 08:40] VITALS: BP 146/83
--- NOTE | 2020-04-30 10:13 | Diagnostic Imaging Report ---
PROCEDURE: CT urinary tract, rule out kidney stone. TECHNIQUE: Multiple contiguous axial images were obtained through the abdomen and pelvis without the use of intravenous contrast. Auto Exposure Controls were utilized during the CT exam to meet ALARA standards for radiation dose reduction. INDICATION: Flank pain and abdominal pain. No prior studies are available for comparison. The lung bases demonstrate some minimal infiltrate or atelectasis in the lingula as well as right lower lobe. No discrete liver mass is detected. Gallbladder is unremarkable. There is no biliary duct dilatation. Pancreas and spleen are unremarkable. No adrenal mass is detected. Kidneys are without evidence of calculi or hydronephrosis. There is a cyst in left kidney 3.5 cm in size. Aorta is non-aneurysmal. No definite ureteral or bladder calculi are detected. The stomach is distended with fluid and debris. The small bowel is also distended. There does appear to be a focal transition in the right lower quadrant and findings are suggestive of a small bowel obstruction. The colon demonstrates a moderate amount of stool. Appendix is unremarkable. There are sutures at the rectosigmoid junction. No free fluid or fluid collection is seen. There is no free air. Prostate is unremarkable. Bony structures are nonacute. IMPRESSION: 1. Minimal infiltrate or atelectasis in the lingula and right lower lobe. 2. No evidence of urinary tract calculi or obstruction. There is a left renal cyst. 3. Moderate distention of the stomach and small bowel loops with transition in the right lower quadrant distally suggestive of small bowel obstruction. No abscess formation or evidence of pneumoperitoneum is identified. Dictated by: Dictated on workstation # [id number]
[2020-04-30] MEDS ORDERED: DILT240C91 PO (11:02)
[2020-04-30 11:46] VITALS: BP 124/61
[2020-04-30] MEDS ORDERED: DIATRIZOATE MEGLUM/SODIUM 37% 120 ML (GASTROGRAFIN) NG ONE (13:45)
--- NOTE | 2020-04-30 16:30 | Diagnostic Imaging Report ---
INDICATION: Small bowel obstruction. COMPARISON: Imaging from the same date and from April 29, 2020. TECHNIQUE: Single-contrast small bowel follow-through was performed on April 30, 2020. FINDINGS: Wagon Driver imaging demonstrates enteric catheter in place with the distal tip and sidehole within the body of the stomach. The stomach is dilated. Loops of small bowel within the left abdomen are at the upper limits of normal in size measuring just under 3 cm. No free air. Chain suture is noted within the midline pelvis. Contrast was instilled into the stomach via enteric catheter. Contrast is identified within the colon at one hour. No free intraperitoneal contrast. No acute osseous abnormality. IMPRESSION: Small bowel transit time of near one hour is noted. Therefore, there is no evidence of high-grade bowel obstruction. Dilated stomach with borderline dilated small bowel. Findings are favored to relate to ileus. Low-grade bowel obstruction is felt less likely given normal small bowel transit time. Postsurgical changes associated with the colon with moderate amount of stool throughout the colon. Dictated by: Dictated on workstation # [id number]
[2020-04-30 16:35] VITALS: BP 121/72
[2020-04-30 19:48] VITALS: BP 126/74
[2020-05-01] VITALS: BP 125/68
[2020-05-01 04:00] VITALS: BP 121/71
[2020-05-01] MEDS: D5 1/2 NS W/KCL 20 MEQ/L 1,000 ML IV SCH ×2 (04:07→13:12)
--- NOTE | 2020-05-01 07:29 | Progress Note - Surgery ---
KATHY REID MED STUDENT 05/01/20 0729: Subjective Date Seen by a Provider: May 01, 2020 Time Seen by a Provider: 06:55 Subjective/Events-last exam Pt fully alert and oriented. Pt last passed stool 5 minutes before visit- no melena or hematochezia. Pt last experienced N/Ving yesterday am, none since. No abd pain. Pt still has NG tube in. Pt denies any new complaints. Review of Systems General: No Chills, No Night Sweats Pulmonary: No Dyspnea, No Cough, No Pleuritic Chest Pain Cardiovascular: No: Chest Pain, Palpitations Gastrointestinal: No: Nausea, Vomiting, Abdominal Pain, Diarrhea, Constipation, Melena, Hematochezia Objective Exam Vital Signs Date Time Temp Pulse Resp B/P (MAP) Pulse Ox O2 Delivery O2 Flow Rate FiO2 05/01/20 04:00 36.4 74 18 121/71 (88) 94 Room Air 05/01/20 01:00 74 05/01/20 00:00 36.1 77 18 125/68 (87) 95 Room Air 04/30/20 20:00 Room Air 04/30/20 19:48 36.8 80 18 126/74 (91) 96 Room Air 04/30/20 19:00 74 04/30/20 16:35 37.0 84 16 121/72 (88) 96 Room Air 04/30/20 13:38 60 04/30/20 11:46 36.9 65 18 124/61 (82) 97 Room Air 04/30/20 08:40 35.2 83 16 146/83 (104) 97 Room Air 04/30/20 08:00 Room Air I & O 05/01/20 07:00 Intake Total 0 ml Output Total 1075 ml Balance -1075 ml Capillary Refill : Less Than 3 Seconds General Appearance: No Apparent Distress, WD/WN HEENT: PERRL/EOMI, Normal ENT Inspection, Other (NG tube) Neck: Full Range of Motion, Non Tender Respiratory: Chest Non Tender, No Accessory Muscle Use, No Respiratory Distress Cardiovascular: No Murmur, Irregularly Irregular (afib hx) Peripheral Pulses: 2+ Radial Pulses (R), 2+ Radial Pulses (L) Gastrointestinal: non tender, soft, abnormal bowel sounds (hyperactive BS x 4 quadrants. 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 BPH Afib - aspirin only bloodthinner at home. HTN Advance diet - liquid. remove NG tube. IV pain control - fentanyl IV nausea control - zofran IV fluids Hold aspirin today, continue SCD. TRICIA STRE[address] DO 05/01/20 1518: Subjective Subjective/Events-last exam Feeling better. +bm and flatus. No n/v. No abdominal pain. NG tube clamped. SBFT showing transition of contrast into colon without obstruction. Objective Exam General Appearance: No Apparent Distress, WD/WN HEENT: PERRL/EOMI, Normal ENT Inspection Neck: Full Range of Motion, Non Tender Respiratory: Chest Non Tender, No Accessory Muscle Use, No Respiratory Distress Cardiovascular: Regular Rate, Rhythm, No JVD Gastrointestinal: non tender, soft; No distended Extremity: Normal Inspection, Non Tender, Other Neurologic/Psychiatric: Alert, Oriented x3, No Motor/Sensory Deficits, Normal Mood/Affect, denture contour wire specialist II-XII Norm as Tested Skin: Normal Color, Warm/Dry Lymphatic: No Adenopathy Assessment/Plan Assessment/Plan Assessment/Plan partial SBO -SB follow through 04/30 showed 1hr transit time. BPH Afib - aspirin only bloodthinner at home. HTN Advance diet - liquid. remove NG tube. IV pain control - fentanyl IV nausea control - zofran IV fluids Hold dvt prophylaxis continue SCD. Supervisory-Addendum Brief Verification & Attestation Participated in pt care: history, MDM, physical Personally performed: exam, history, MDM, supervision of care Care discussed with: Medical Student Procedures: n/a Results interpretation: Verified all documentation Verification and Attestation of Medical Student E/M Service A medical student performed and documented this service in my presence. I reviewed and verified all information documented by the medical student and made modifications to such information, when appropriate. I personally performed the physical exam and medical decision making. Ya Watermanb 10, 2021,15:18 KATHY REID MED STUDENT May 01, 2020 07:[address] DO May 01, 2020 15:18
[2020-05-01 08:00] VITALS: BP 142/74
[2020-05-01] MEDS: PANTOPRAZOLE 40 MG (PROTONIX) VIAL IV SCH (08:14)
[2020-05-01 12:00] VITALS: BP 120/64
--- NOTE | 2020-05-01 14:00 | Consultation ---
History of Present Illness History of Present Illness Patient Consulted On(lexa/time) 05/01/20 13:58 Date Seen by Provider: May 01, 2020 Time Seen by Provider: 08:30 Reason for Visit: small bowel obstruction History of Present Illness 69 yo M admitted for concern for small bowel obstruction. He reported it started after eating a big meal. Severe abdominal pain LLQ. No radiation. He felt like he had to have a bowel movement so he tried and has one. Denies any blood in stool. No blood in emesis. Nausea and vomiting started after admission. He is passing gas. He is feeling much better pain-anna. The stuff he had to drink for the small bowel study seems to be moving through him because he is having loose stools now. NG tube with some bilious output. He denies any chest pain or palpitations. Denies going in to atrial fibrillation which he is aware of. 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 Allergies and Home Medications Allergies Coded Allergies: No Known Drug Allergies (Unverified , 03/28/19) Home Medications Aspirin 81 Mg Tab.chew, 81 MG PO DAILY, (Reported) Diltiazem HCl 240 Mg Cap.er.24h, 240 MG PO DAILY, (Reported) Lisinopril 10 Mg Tablet, 10 MG PO DAILY, (Reported) Tamsulosin HCl 0.4 Mg Cap, 0.4 MG PO DAILY, (Reported) Patient Home Medication List Home Medication List Reviewed: Yes Past Douvxwg-Cprhgt-Trfelx Hx Past Med/Social Hx: Reviewed and Corrections made Patient Social History Alcohol Use: Rarely Uses Drug of Choice: DENIES Smoking Status: Former Smoker (4-5 Pack year hx ) Former Smoker, Quit: Jul 14, 1977 2nd Hand Smoke Exposure: Yes Recent Infectious Disease Expo: No Recent Hopitalizations: No Have you traveled recently?: No Alcohol Use?: No Immunizations Up To Date Tetanus Booster (TDap): More than 5yrs PED Vaccines UTD: No Seasonal Allergies Seasonal Allergies: No Past Medical History Surgeries: Yes (SEE BELOW) Abdominal (lower anterior sigmoid resection in 2002 ) Respiratory: No Cardiac: Yes (A FIB--NO ANTICOAGULATION / 81 MG ASPIRIN ONLY. 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) Endocrine: No HEENT: No Loss of Vision: Denies Hearing Impairment: Denies Cancer: Yes ("PRECANCEROUS COLON POLYPS" PER PT) Colon Did You Recieve Any Treatments: Yes What Type of Treatment Did You: Surgical Intervention CANCEROUS VS "PRECANCEROUS POLYPS" --S/P LOW ANTERIOR SIGMOID RESECTION LOW GRADE LEFT INGUINAL AREA REMOVED 08/1992 NO CHEMO OR RADIATION HAS BEEN RELEASED BY ONCOLOGY AND NO LONGER FOLLOWS WITH THEM, PER PT 04/29/20 Psychosocial: No Integumentary: No Blood Disorders: No Adverse Reaction/Blood Tranf: No (N/A) Family Medical History Other Conditions/Hx (Pts father had prostate cancer, no other FH of cancer. ) SOCIAL HISTORY: -RARE ETOH USE -DENIES DRUG USE -SMOKED 1 PPD, QUIT 1977 SURGICAL HISTORY: -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 STREET. Review of Systems Review of Systems General: No Chills, No Night Sweats Pulmonary: No Dyspnea, No Cough, No Pleuritic Chest Pain Cardiovascular: No: Chest Pain, Palpitations Gastrointestinal: Nausea, Vomiting (one time), Abdominal Pain; No: Diarrhea, Constipation, Melena, Hematochezia All Other Systems Reviewed All Other Systems Reviewed: Yes (Negative excepted noted.) Physical Exam Vital Signs Vital Signs - First Documented 04/29/20 23:28 Temp 36.4 Pulse 82 Resp 18 B/P (MAP) 152/80 (104) Pulse Ox 97 O2 Delivery Room Air Capillary Refill : Less Than 3 Seconds Height, Weight, BMI Height: 6'1.00" Weight: 213lbs. 0.0oz. 96.599925do; 30.37 BMI Method:Stated General Appearance: No Apparent Distress HEENT: PERRL/EOMI Neck: Non Tender, Supple Respiratory: Chest Non Tender, Lungs Clear, Normal Breath Sounds, No Accessory Muscle Use, No Respiratory Distress Cardiovascular: Regular Rate, Rhythm Gastrointestinal: Soft Rectal: Deferred Back: Normal Inspection, No CVA Tenderness Extremity: Non Tender, Pedal Edema (left leg more edema) Neurologic/Psychiatric: Alert, Oriented x3 Skin: Warm/Dry Assessment/Plan Assessment/Plan Assessment and Plan continue to monitor bowels- seems to be opening up with the small bowel follow through as he has had bowel movements. NG is still putting out bilious fluid. -monitoring heart rhythm as he could go into Afib with RVR. Currently in NSR. will continue to follow along. Problems: (1) Small bowel obstruction (2) Paroxysmal A-fib (3) HTN (hypertension) Qualifiers: Qualified Codes: I10 - Essential (primary) hypertension Assessment & Plan: will monitor blood pressure- and act accordingly. currently under good control (4) BPH associated with nocturia Assessment & Plan: on tamsulosin will resume when taking po. WILBER HARRIS MD May 01, 2020 14:00
[2020-05-01 16:00] VITALS: BP 167/87
[2020-05-01 19:00] VITALS: BP 165/82
[2020-05-02] VITALS: BP 123/60
[2020-05-02 04:33] VITALS: BP 136/69
--- NOTE | 2020-05-02 07:57 | Progress Note - Surgery ---
KATHY REID MED STUDENT 05/02/20 0757: Subjective Date Seen by a Provider: May 02, 2020 Time Seen by a Provider: 07:10 Subjective/Events-last exam Pt passed stool and gas this morning. No N/Ving. No abd pain. Pt denies any new concerns. Pt tolerating liquid diet well without post-prandial pain, distension, or dysphagia. Review of Systems General: No Chills, No Night Sweats HEENT: No Dysphasia, No Sore Throat Pulmonary: No Dyspnea, No Cough Cardiovascular: No: Chest Pain, Palpitations Gastrointestinal: No: Nausea, Vomiting, Abdominal Pain, Diarrhea, Constipation, Melena, Hematochezia Objective Exam Vital Signs Date Time Temp Pulse Resp B/P (MAP) Pulse Ox O2 Delivery O2 Flow Rate FiO2 05/02/20 04:33 60 18 136/69 (91) 96 Room Air 05/02/20 01:00 50 05/02/20 00:00 68 18 123/60 (81) 97 Room Air 05/01/20 20:00 Room Air 05/01/20 19:00 36.8 59 20 165/82 (109) 99 Room Air 05/01/20 19:00 60 05/01/20 16:00 36.0 62 16 167/87 (113) 96 Room Air 05/01/20 12:28 68 05/01/20 12:00 36.4 76 16 120/64 (82) 94 Room Air 05/01/20 08:00 36.3 67 16 142/74 (96) 93 Room Air 05/01/20 08:00 Room Air I & O 05/02/20 07:00 Intake Total 2180 ml Output Total 1950 ml Balance 230 ml Capillary Refill : Less Than 3 Seconds General Appearance: No Apparent Distress, WD/WN HEENT: PERRL/EOMI, Normal ENT Inspection Neck: Full Range of Motion, Non Tender Respiratory: Chest Non Tender, No Accessory Muscle Use, No Respiratory Distress Cardiovascular: No JVD, Irregularly Irregular Peripheral Pulses: 2+ Radial Pulses (R), 2+ Radial Pulses (L) Gastrointestinal: normal bowel sounds, non tender, soft; No distended Extremity: Normal Inspection, Non Tender, No Calf Tenderness Neurologic/Psychiatric: Alert, Oriented x3, No Motor/Sensory Deficits, Normal Mood/Affect, housekeeper head II-XII Norm as Tested Skin: Normal Color, Warm/Dry Lymphatic: No Adenopathy Assessment/Plan Assessment/Plan Assessment/Plan partial SBO BPH Afib HTN Advance diet to softs, can try solids this afternoon. Restart home medications this morning, including aspirin Consider afternoon discharge today if pt tolerates advanced diet. TRICIA NAVA DO 05/02/20 1454: Subjective Subjective/Events-last exam Patient passing flatus and having bowel movements. He is tolerating liquid diet. No abdominal pain. Has no new complaints. Patient wanting to go home. Patient denies any nausea vomiting fever sweats chills shortness of breath or chest pain. Objective Exam General Appearance: No Apparent Distress, WD/WN HEENT: PERRL/EOMI, Normal ENT Inspection Neck: Full Range of Motion, Non Tender Respiratory: Chest Non Tender, No Accessory Muscle Use, No Respiratory Distress Cardiovascular: Regular Rate, Rhythm, No JVD Gastrointestinal: non tender, soft; No distended Extremity: Non Tender, No Calf Tenderness Neurologic/Psychiatric: Alert, Oriented x3, No Motor/Sensory Deficits, Normal Mood/Affect, housekeeper head II-XII Norm as Tested Skin: Normal Color, Warm/Dry Lymphatic: No Adenopathy Assessment/Plan Assessment/Plan Assessment/Plan partial SBO BPH Afib hx HTN Patient tolerating diet. Can advance as tolerates. Patient okay to DC home. He has return of bowel function and not having any other symptoms at this time. 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 Patient understands along with his . Supervisory-Addendum Brief Verification & Attestation Participated in pt care: history, MDM, physical Personally performed: exam, history, MDM, supervision of care Care discussed with: Medical Student Procedures: n/a Results interpretation: Verified all documentation Verification and Attestation of Medical Student E/M Service A medical student performed and documented this service in my presence. I reviewed and verified all information documented by the medical student and made modifications to such information, when appropriate. I personally performed the physical exam and medical decision making. Tricia Nava, May 02, 2020,14:54 KATHY REID MED STUDENT May 02, 2020 07:57 TRICIA NAVA DO May 02, 2020 14:54
[2020-05-02 08:00] VITALS: BP 133/70
[2020-05-02] MEDS: PANTOPRAZOLE 40 MG (PROTONIX) VIAL IV SCH (08:42)
[2020-05-02] MEDS ORDERED: TAMSULOSIN 0.4 MG (FLOMAX) CAP PO SCH (09:00)
[2020-05-02] MEDS ORDERED: ASPIRIN 81 MG CHEW (CHILDREN'S ASA) PO SCH (09:00)
[2020-05-02] MEDS ORDERED: lisINopril 10 MG (PRINIVIL) TABLET PO SCH (09:00)
[2020-05-02 12:00] VITALS: BP 154/71
--- NOTE | 2020-05-02 14:50 | Discharge Inst-Simple/Standard ---
Discharge Inst-Standard Patient Instructions/Follow Up Plan of Care/Instructions/FU: Elijah as needed. Keep any regulary scheduled appointments. Activity as Tolerated: Yes Discharge Diet: Regular Diet (as tolerates.) Other Inst to Patient Follow up Appt: Follow up on as needed basis. Keep any regular scheduled appointments. Diet as tolerates. Symptoms to Report: Appetite Changes, Extremity Discoloration, Numbness/Tingling, Swelling Increased, Bleeding Excessive, Eyesight Changes, Pain Increased, Urine Color Change, Constipation(Persistent), Fever over 101 degree F, Pain/Pressure in chest, Urinating Difficulty, Cough Up/Vomit Blood, Heart Beat Irreg/Pounding, Pain/Pressure in jaw, Vaginal Bleeding Increase, Cramps in feet or legs, Light headedness, Pain/Pressure in shoulder, Diarrhea(Persistent), Memory Changes Suddenly, Questions/Concerns, Weight gain consecutive days, Dizziness/Fainting, Nausea/Vomiting, Shortness of Breath, Weight gain over 2 pounds If questions or concerns contact your physician Or seek help at emergency department. TRICIA STREET DO May 02, 2020 14:50
[2020-05-02 15:35] VITALS: BP 154/71
--- NOTE | 2020-05-02 16:37 | Progress Note ---
Subjective Subjective Date Seen by Provider: May 02, 2020 Time Seen by Provider: 08:35 Doing well. NG tube out, advancing diet. ready to go home. Review of Systems General: No Chills, No Night Sweats HEENT: No Dysphasia, No Sore Throat Pulmonary: No Dyspnea, No Cough Cardiovascular: No: Chest Pain, Palpitations Gastrointestinal: No: Nausea, Vomiting, Abdominal Pain, Diarrhea, Constipation, Melena, Hematochezia All Other Systems Reviewed All Other Systems Reviewed: Yes (Negative excepted noted.) Objective Exam Vital Signs 36 C 59 bpm 133/70 20 breath/min 97% oxygen room air General Appearance: No Apparent Distress, WD/WN HEENT: PERRL/EOMI, Normal ENT Inspection Neck: Full Range of Motion, Non Tender Respiratory: Chest Non Tender, No Accessory Muscle Use, No Respiratory Distress Cardiovascular: Regular Rate, Rhythm, No JVD Gastrointestinal: Normal Bowel Sounds, No Organomegaly, Distended; No Guarding; Tenderness (minimal diffuse) Rectal: Deferred Back: Normal Inspection, No CVA Tenderness, No Vertebral Tenderness Extremity: Non Tender, No Calf Tenderness Neurologic/Psychiatric: Alert, Oriented x3, No Motor/Sensory Deficits, Normal Mood/Affect, neck pinner II-XII Norm as Tested Skin: Normal Color, Warm/Dry Lymphatic: No Adenopathy Assessment/Plan Assessment/Plan Assessment and Plan 05/01/20 continue to monitor bowels- seems to be opening up with the small bowel follow through as he has had bowel movements. NG is still putting out bilious fluid. -monitoring heart rhythm as he could go into Afib with RVR. Currently in NSR. 05/02/20- cleared from medical standpoint to go home ; standard post- SBO instructions- continue to advance activities. fluid hydration. followup at [facility] for routine follow ups. Problems: (1) Small bowel obstruction (2) Paroxysmal A-fib (3) HTN (hypertension) Qualifiers: Qualified Codes: I10 - Essential (primary) hypertension (4) BPH associated with nocturia WILBER HARRIS MD May 02, 2020 16:37
--- NOTE | 2020-05-02 19:46 | DISCHARGE SUMMARY ---
DATE OF SERVICE: ADMITTING PHYSICIAN: Tricia Nava DO CONSULTING PHYSICIAN: Kel Juarez MD ADMITTING DIAGNOSES: Small bowel obstruction, nausea, vomiting, abdominal pain diffuse, BPH, history of AFib, and hypertension. DISCHARGE DIAGNOSES: Partial small bowel obstruction, BPH, AFib, history of hypertension. HOSPITAL COURSE: The patient is a 69-year-old male, who had sudden onset of abdominal pain and nausea and vomiting. It was decided to come to the Emergency Department for further evaluation. He had a CT scan showing minimal infiltrate or atelectasis in the lingula and right lower lobe. No evidence of urinary tract calculi or obstruction. There is a left renal cyst. Moderate distention of the stomach and small bowel loops with transition in the right lower quadrant distally suggestive of small bowel obstruction. No abscess formation or evidence of pneumoperitoneum is identified. The patient was admitted to the hospital for further studies and conservative measures. He had a NG tube placed and was decompressed. He was kept n.p.o. The patient had a small bowel follow through performed on 04/30/2020, which demonstrated a small bowel transit time near 1 hour. No evidence of high-grade bowel obstruction, dilated stomach with borderline dilated small bowel and then postsurgical changes associated with the colon with moderate amount of stool throughout the colon. The patient began having flatus and having bowel function. The NG tube was removed and the patient was started on clear liquid diet. Today on 05/02/2020, the patient is still having bowel function, he is tolerating diet. The patient discharged home in stable condition. Please see hospital chart for further information. Job ID: [id number] DocumentID: [id number] Dictated Date: 05/02/2020 14:58:37 Housing Director Date: 05/02/2020 19:45:36 Dictated By: TRICIA NAVA DO
== END 2020-05-02 15:44 | disposition home or self-care (01) | DRG 390 ==
LOC: EDUNIT# 22:59 → ER 23:01 → 4TH 04-30 00:50
PROVIDERS: ADMIT Surgery; ATTEND Surgery
DX: K56.600 Partial intestinal obstruction, unspecified as to cause (principal); I10 Essential (primary) hypertension; K57.90 Diverticulosis of intestine, part unspecified, without perforation or abscess without bleeding; R11.2 Nausea with vomiting, unspecified; I48.0 Paroxysmal atrial fibrillation; N40.1 Benign prostatic hyperplasia with lower urinary tract symptoms; R35.1 Nocturia; Z79.82 Long term (current) use of aspirin; Z87.891 Personal history of nicotine dependence
CPT/HCPCS: 36415; 71045; 74018; 74022; 74176; 74250; 80053; 81000; 82150; 83690; 83735; 85025; 93041; 96361; 96374

== ENCOUNTER 2022-02-17 22:49 | Observation (INO) | payer BC, MEDICARE ==
[~2022-02-17] VITALS: Ht 185.9 cm; Wt 105.8 kg
[~2022-02-17 22:49] MED LIST changes: +DILT240C91 PO
--- NOTE | 2022-02-17 23:01 | ED Abdominal Pain ---
General Stated Complaint: ABD PAIN History of Present Illness Date Seen by Provider: Feb 17, 2022 Time Seen by Provider: 23:01 Initial Comments 71-year-old male with PMH of past small bowel obstruction many years ago, is here with complaints of sudden onset of abdominal pain after he had dinner today. Patient had Thanksgiving leftovers for dinner. Pain is colicky in nature and makes him double over when a wave of pain occurs. Patient states that it feels similar to when he had a bowel obstruction many years ago. Denies having constipation or diarrhea, fever, nausea and vomiting, chest pain, palpitations. Allergies and Home Medications Allergies Coded Allergies: No Known Drug Allergies (Unverified , 03/28/19) Patient Home Medication List Home Medication List Reviewed: Yes Aspirin (Aspirin) 81 Mg Tab.chew, 81 MG PO DAILY, (Reported) Entered as Reported by: FRANC DUMONT on 03/28/19 1525 Diltiazem HCl (Diltiazem 24Hr ER) 240 Mg Cap.er.24h, 240 MG PO DAILY, (Reported) Entered as Reported by: AZ FERRIS on 04/30/20 1102 Lisinopril (Lisinopril) 10 Mg Tablet, 10 MG PO DAILY, (Reported) Entered as Reported by: FRANC DUMONT on 03/28/19 1525 Tamsulosin HCl (Flomax) 0.4 Mg Cap, 0.4 MG PO DAILY, (Reported) Entered as Reported by: FRANC DUMONT on 03/28/19 1525 Review of Systems Review of Systems Constitutional: no symptoms reported EENTM: No Symptoms Reported Respiratory: No Symptoms Reported Cardiovascular: No Symptoms Reported Gastrointestinal: Abdominal Pain Genitourinary: No Symptoms Reported Musculoskeletal: no symptoms reported Skin: no symptoms reported Psychiatric/Neurological: No Symptoms Reported Endocrine: No Symptoms Reported Hematologic/Lymphatic: No Symptoms Reported Past Wdfojqt-Prkupw-Howuln Hx Immunizations Up To Date Tetanus Booster (TDap): More than 5yrs PED Vaccines UTD: No Seasonal Allergies Seasonal Allergies: No Past Medical History Surgeries: Yes (SEE BELOW) Abdominal Respiratory: No Cardiac: Yes (A FIB--NO ANTICOAGULATION / 81 MG ASPIRIN ONLY. 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) Endocrine: No HEENT: No Loss of Vision: Denies Hearing Impairment: Denies Cancer: Yes ("PRECANCEROUS COLON POLYPS" PER PT) Colon Did You Recieve Any Treatments: Yes What Type of Treatment Did You: Surgical Intervention Psychosocial: No Integumentary: No Blood Disorders: No Adverse Reaction/Blood Tranf: No (N/A) Family Medical History Other Conditions/Hx SOCIAL HISTORY: -RARE ETOH USE -DENIES DRUG USE -SMOKED 1 PPD, QUIT 1977 SURGICAL HISTORY: -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 STREET. Physical Exam Vital Signs Vital Signs - First Documented 02/17/22 22:55 Temp 36.4 Pulse 77 Resp 20 B/P (MAP) 139/80 (99) Pulse Ox 98 O2 Delivery Room Air Capillary Refill : Height/Weight/BMI Height: 6'1.00" Weight: 213lbs. 0.0oz. 96.907638tl; 30.37 BMI Method:Stated General Appearance: mild distress HEENT: PERRL/EOMI Neck: non-tender, full range of motion, supple Respiratory: chest non-tender, lungs clear, normal breath sounds Cardiovascular: regular rate, rhythm, no edema Gastrointestinal: normal bowel sounds (Although distal), soft, tenderness (Generalized abdominal tenderness) Extremities: normal range of motion Back: normal inspection, no CVA tenderness Neurologic/Psychiatric: alert, normal mood/affect, oriented x 3 Skin: normal color Focused Exam Lactate Level 02/17/22 23:27: Lactic Acid Level 1.75 Lactic Acid Level Laboratory Tests Test 02/17/22 23:27 Lactic Acid Level 1.75 MMOL/L (0.50-2.00) Progress/Results/Core Measures Results/Orders Lab Results Laboratory Tests Test 02/17/22 23:01 02/17/22 23:27 02/18/22 00:02 Range/Units White Blood Count 7.1 4.3-11.0 10^3/uL Red Blood Count 4.73 4.30-5.52 10^6/uL Hemoglobin 14.6 13.3-17.7 g/dL Hematocrit 43 40-54 % Mean Corpuscular Volume 91 80-99 fL Mean Corpuscular Hemoglobin 31 25-34 pg Mean Corpuscular Hemoglobin Concent 34 32-36 g/dL Red Cell Distribution Width 13.4 10.0-14.5 % Platelet Count 190 130-400 10^3/uL Mean Platelet Volume 9.5 9.0-12.2 fL Immature Granulocyte % (Auto) 1 % Neutrophils (%) (Auto) 73 42-75 % Lymphocytes (%) (Auto) 17 12-44 % Monocytes (%) (Auto) 7 0-12 % Eosinophils (%) (Auto) 2 0-10 % Basophils (%) (Auto) 1 0-10 % Neutrophils # (Auto) 5.2 1.8-7.8 10^3/uL Lymphocytes # (Auto) 1.2 1.0-4.0 10^3/uL Monocytes # (Auto) 0.5 0.0-1.0 10^3/uL Eosinophils # (Auto) 0.1 0.0-0.3 10^3/uL Basophils # (Auto) 0.0 0.0-0.1 10^3/uL Immature Granulocyte # (Auto) 0.0 0.0-0.1 10^3/uL Sodium Level 139 135-145 MMOL/L Potassium Level 3.9 3.6-5.0 MMOL/L Chloride Level 100 98-107 MMOL/L Carbon Dioxide Level 25 21-32 MMOL/L Anion Gap 14 5-14 MMOL/L Blood Urea Nitrogen 15 7-18 MG/DL Creatinine 1.17 0.60-1.30 MG/DL Estimat Glomerular Filtration Rate 67 BUN/Creatinine Ratio 13 Glucose Level 114 H 70-105 MG/DL Calcium Level 9.1 8.5-10.1 MG/DL Corrected Calcium 8.9 8.5-10.1 MG/DL Magnesium Level 2.2 1.6-2.4 MG/DL Total Bilirubin 0.6 0.1-1.0 MG/DL Aspartate Amino Transf (AST/SGOT) 22 5-34 U/L Alanine Aminotransferase (ALT/SGPT) 29 0-55 U/L Alkaline Phosphatase 77 40-136 U/L Troponin I < 0.028 <0.028 NG/ML Total Protein 7.0 6.4-8.2 GM/DL Albumin 4.3 3.2-4.5 GM/DL Lipase 25 8-78 U/L Lactic Acid Level 1.75 0.50-2.00 MMOL/L Urine Color YELLOW Urine Clarity CLEAR Urine pH 7.5 5-9 Urine Specific [place] 1.015 L 1.016-1.022 Urine Protein TRACE H NEGATIVE Urine Glucose (UA) NEGATIVE NEGATIVE Urine Ketones NEGATIVE NEGATIVE Urine Nitrite POSITIVE H NEGATIVE Urine Bilirubin NEGATIVE NEGATIVE Urine Urobilinogen 1.0 < = 1.0 MG/DL Urine Leukocyte Esterase 1+ H NEGATIVE Urine RBC (Auto) NEGATIVE NEGATIVE Urine RBC NONE /HPF Urine WBC 25-50 H /HPF Urine Crystals NONE /LPF Urine Bacteria LARGE H /HPF Urine Casts NONE /LPF Urine Mucus NEGATIVE /LPF Urine Culture Indicated YES My Orders Orders - ARIEL SIU MD Cbc With Automated Diff (02/17/22 23:17) Comprehensive Metabolic Panel (02/17/22 23:17) Lactic Acid Analyzer (02/17/22 23:17) Lipase (02/17/22 23:17) Magnesium (02/17/22 23:17) Ua Culture If Indicated (02/17/22 23:17) Troponin I Francie (02/17/22 23:17) Ed Iv/Invasive Line Start (02/17/22 23:17) Ns Iv 1000 Ml (Sodium Chloride 0.9%) (02/17/22 23:30) Ct Abdomen/Pelvis W (02/17/22 23:18) Iohexol Injection (Omnipaque 350 Mg/Ml 1 (02/18/22 00:30) Received Contrast (Hold Metformin- Contr (02/18/22 00:30) Ns (Ivpb) (Sodium Chloride 0.9% Ivpb Bag (02/18/22 00:30) Urine Culture (02/18/22 00:02) Fentanyl Inj (Sublimaze Injection) (02/18/22 01:30) Ceftriaxone 1 Gm Pre-Mix (Rocephin 1 Gm (02/18/22 01:31) Ceftriaxone (Rocephin) (02/18/22 01:43) Medications Given in ED Current Medications Medications Dose Ordered Sig/Parvin Route Start Time Stop Time Status Last Admin Dose Admin Fentanyl Citrate 50 mcg ONCE ONCE IVP 02/18/22 01:30 02/18/22 01:31 DC 02/18/22 01:31 50 MCG Iohexol 100 ml ONCE ONCE IV 02/18/22 00:30 02/18/22 00:32 DC 02/18/22 00:31 80 ML Sodium Chloride 100 ml ONCE ONCE IV 02/18/22 00:30 02/18/22 00:32 DC 02/18/22 00:31 80 ML Vital Signs/I&O 02/17/22 22:55 Temp 36.4 Pulse 77 Resp 20 B/P (MAP) 139/80 (99) Pulse Ox 98 O2 Delivery Room Air Progress Progress Note : Progress Note 1. SMALL BOWEL OBSTRUCTION: - CT ABD & PELVIS: see report - CBC / CMP unremarkable, normal WBC - Ceftriaxone 1gm iv STAT - Fentanyl for pain - Will admit for surgery consult in the morning. Discussed with hospitalist, Dr Power and accepted - NPO - IVF - NG tube 2. ACUTE CYSTITIS: - UA is positive for nitrates, leukocyte esterase, WBC, bacteria - Ceftriaxone covers for this - NS IVF started in ER Departure Communication (Admissions) Time/Spoke to Admitting Phy: 01:[address] Power, hospitalist. Will admit to observation Impression Primary Impression: Bowel obstruction Qualified Codes: K56.600 - Partial intestinal obstruction, unspecified as to cause Additional Impression: Acute cystitis without hematuria Disposition: 30 STILL A PATIENT Condition: Stable Admissions Decision to Admit Reason: Admit from ER (General) Decision to Admit/Date: Feb 17, 2022 Time/Decision to Admit Time: 23:45 Departure-Patient Inst. Referrals: WILBER HARRIS MD (PCP/Family) Primary Care Physician ARIEL SIU MD Feb 17, 2022 23:01
[2022-02-17] MEDS ORDERED: NS IV 1000 ML 1,000 ML IV SCH (23:30)
[2022-02-17 23:39] LABS: BASOPHILS % (AUTO) 1 % (0-10); EOSINOPHILS # (AUTO) 0.1 10^3/uL (0.0-0.3); EOSINOPHILS % (AUTO) 2 % (0-10); HEMATOCRIT 43 % (40-54); HEMOGLOBIN 14.6 g/dL (13.3-17.7); LYMPHOCYTES # (AUTO) 1.2 10^3/uL (1.0-4.0); LYMPHOCYTES % (AUTO) 17 % (12-44); MEAN CORPUSCULAR HEMOGLOBIN 31 pg (25-34); MEAN CORPUSCULAR HGB CONC 34 g/dL (32-36); MEAN CORPUSCULAR VOLUME 91 fL (80-99); MEAN PLATELET VOLUME 9.5 fL (9.0-12.2); MONOCYTES # (AUTO) 0.5 10^3/uL (0.0-1.0); MONOCYTES % (AUTO) 7 % (0-12); NEUTROPHILS # (AUTO) 5.2 10^3/uL (1.8-7.8); NEUTROPHILS % (AUTO) 73 % (42-75); PLATELET COUNT 190 10^3/uL (130-400); WHITE BLOOD COUNT 7.1 10^3/uL (4.3-11.0)
[2022-02-17 23:50] LABS: ALANINE AMINOTRANSFERASE 29 U/L (0-55); ALBUMIN 4.3 GM/DL (3.2-4.5); ALKALINE PHOSPHATASE 77 U/L (40-136); BILIRUBIN,TOTAL 0.6 MG/DL (0.1-1.0); BUN/CREATININE RATIO 13; CALCIUM 9.1 MG/DL (8.5-10.1); CARBON DIOXIDE 25 MMOL/L (21-32); CHLORIDE 100 MMOL/L (98-107); CREATININE SERUM 1.17 MG/DL (0.60-1.30); GFR ESTIMATED 67; GLUCOSE 114 MG/DL (70-105); LIPASE 25 U/L (8-78); MAGNESIUM 2.2 MG/DL (1.6-2.4); POTASSIUM 3.9 MMOL/L (3.6-5.0); SODIUM 139 MMOL/L (135-145)
[2022-02-18] VITALS (7 sets, daily range): BP systolic 142–158; BP diastolic 71–80
[2022-02-18 00:10] LABS: BILIRUBIN,URINE NEGATIVE (NEGATIVE); CLARITY,URINE CLEAR; COLOR,URINE YELLOW; GLUCOSE, URINE (UA) NEGATIVE (NEGATIVE); KETONES,URINE NEGATIVE (NEGATIVE); LEUKOCYTE ESTERASE ,URINE 1+ (NEGATIVE); NITRITE,URINE POSITIVE (NEGATIVE); PH,URINE 7.5 (5-9); PROTEIN,URINE TRACE (NEGATIVE)
[2022-02-18] MEDS ORDERED: HOLD METFORMIN - RECEIVED CONTRAST 20 ML VIAL IV SCH (00:30)
[2022-02-18] MEDS ORDERED: IOHEXOL 350 MG/ML 100 ML (OMNIPAQUE 350) VIAL IV ONE (00:30)
[2022-02-18] MEDS ORDERED: NS 100 ML (IVPB) BAG IV ONE (00:30)
[2022-02-18 00:37] LABS: BACTERIA,URINE LARGE /HPF; WBC,URINE 25-50 /HPF
[2022-02-18] MEDS ORDERED: fentaNYL INJ 100 MCG/2 ML AMP IVP ONE (01:30)
[2022-02-18] MEDS ORDERED: cefTRIAXone 1 GM PRE-MIX 50 ML IV STA (01:31)
[2022-02-18] MEDS ORDERED: cefTRIAXone 1,000 MG VIAL ONE (01:43)
[2022-02-18] MEDS ORDERED: ACETAMINOPHEN 325 MG TABLET PO PRN (03:45)
[2022-02-18] MEDS ORDERED: MELATONIN 3 MG TABLET PO PRN (03:45)
[2022-02-18] MEDS ORDERED: fentaNYL INJ 100 MCG/2 ML AMP IV PRN (03:45)
[2022-02-18] MEDS: NS IV 1000 ML 1,000 ML IV SCH ×3 (04:01→14:56)
[2022-02-18] MEDS ORDERED: RT-ALBUTEROL SULF 2.5 MG/3 ML PRE-MIX VIAL INH PRN (04:15)
[2022-02-18 06:08] LABS: BASOPHILS % (AUTO) 0 % (0-10); EOSINOPHILS % (AUTO) 0 % (0-10); HEMATOCRIT 40 % (40-54); HEMOGLOBIN 13.3 g/dL (13.3-17.7); LYMPHOCYTES # (AUTO) 0.6 10^3/uL (1.0-4.0); LYMPHOCYTES % (AUTO) 7 % (12-44); MEAN CORPUSCULAR HEMOGLOBIN 31 pg (25-34); MEAN CORPUSCULAR HGB CONC 34 g/dL (32-36); MEAN CORPUSCULAR VOLUME 92 fL (80-99); MEAN PLATELET VOLUME 9.6 fL (9.0-12.2); MONOCYTES # (AUTO) 0.4 10^3/uL (0.0-1.0); MONOCYTES % (AUTO) 5 % (0-12); NEUTROPHILS # (AUTO) 7.7 10^3/uL (1.8-7.8); NEUTROPHILS % (AUTO) 88 % (42-75); PLATELET COUNT 180 10^3/uL (130-400); WHITE BLOOD COUNT 8.8 10^3/uL (4.3-11.0)
[2022-02-18 06:25] LABS: CALCIUM 8.8 MG/DL (8.5-10.1); CREATININE SERUM 1.05 MG/DL (0.60-1.30); POTASSIUM 4.7 MMOL/L (3.6-5.0)
[2022-02-18 06:31] LABS: EOSINOPHILS % (MANUAL) 1 %; LYMPHOCYTES % (MANUAL) 6 %; MONOCYTES % (MANUAL) 8 %; NEUTROPHILS % (MANUAL) 85 %
[2022-02-18 06:32] LABS: RBC MORPH NORMAL
--- NOTE | 2022-02-18 06:54 | Diagnostic Imaging Report ---
PROCEDURE: CT abdomen and pelvis with contrast. TECHNIQUE: Multiple contiguous axial images were obtained through the abdomen and pelvis after administration of intravenous contrast. Auto Exposure Controls were utilized during the CT exam to meet ALARA standards for radiation dose reduction. All CT scans use one or more of the following dose optimizing techniques: automated exposure control, MA and/or KvP adjustment based on patient size and exam type or iterative reconstruction. INDICATION: Abdominal pain and distention. FINDINGS: There is a hepatic steatosis. Gallbladder and bile duct are normal. Pancreas is normal. Spleen is not enlarged. The adrenal glands are normal. There is a cyst off the left kidney in the upper pole measuring 4 cm. There is no hydronephrosis or calculi. Stomach is distended and filled with food and fluid. Proximal small bowel is distended and fluid-filled. There is some fecalization in the distal jejunum. The ileum is decompressed consistent with partial small bowel obstruction. The colon shows very little stool or gas. There is no free air or free fluid. Bladder is nondistended. No pelvic masses. No adenopathy of pathologic size. There is an anastomotic suture line in the rectosigmoid colon. Lumbosacral spine shows good alignment without evidence of compression fracture. IMPRESSION: 1. Distended stomach and proximal small bowel with fecalization of content in the distal jejunum consistent with chronic partial small bowel obstruction. These findings are in agreement with the preliminary report. Dictated by: Dictated on workstation # [id number]
--- NOTE | 2022-02-18 10:06 | History & Physical-Hospitalist ---
History of Present Illness HPI/Chief Complaint Pt is a 71yoCM with a PMH of SBO and sigmoid colon resection, HTN, BPH, and a- fib who presented to the ER due to sudden onset abdominal pain. He reported eating Thanksgiving left overs (6 days old) and then quickly developed colicky abdominal pain similar to his previous SBO prompting him to seek evaluation in the ER. CT abdomen/pelvis revealed partial SBO. He was admitted for further management. He was incidentally found to have UTI as well. This morning he reports already having a BM and pain has now resolved and he is doing well. He would like to advance his diet. Source: patient Date Seen 02/18/22 Time Seen by a Provider: 10:05 Attending Physician Kel Juarez MD PCP Admitting Physician: Vlad Power MD Attending Physician: Vlad Power MD Referring Physician Date of Admission Feb 18, 2022 at 02:21 Home Medications & Allergies Home Medications Reviewed patient Home Medication Reconciliation performed by pharmacy medication reconciliations swimming pool service technician and/or nursing. Patients Allergies have been reviewed. Allergies Allergies Coded Allergies No Known Drug Allergies (Unverified03/28/19) Past Pfiisqz-Inzqmr-Hyiitt Hx Patient Social History Tobacco Use?: No Smoking Status: Former Smoker Use of E-Cig and/or Vaping dev: No Substance use?: No Alcohol Use?: Yes Alcohol type: Beer Alcohol Frequency: Once in a while Pt feels they are or have been: No Immunizations Up To Date Date of Influenza Vaccine: Dec 29, 2021 Tetanus Booster (TDap): Unknown Hepatitis A: No Hepatitis B: No PED Vaccines UTD: No Seasonal Allergies Seasonal Allergies: No Current Status Advance Directives: No Communicates: Verbally Primary Language: Salvadorean Preferred Spoken Language: Salvadorean Is interpretation needed?: No Implanted or Applied Medical D: None Past Medical History Surgeries: Abdominal Atrial Fibrillation, Chronic Edema/Swelling, Hypertension, Irregular Heartbeat Sexually Transmitted Disease: No HIV/AIDS: No Prostate Problems Diverticulosis, Polyps Loss of Vision: Denies Hearing Impairment: Denies Colon Did You Recieve Any Treatments: Yes What Type of Treatment Did You: Surgical Intervention Blood Disorders: No Adverse Reaction/Blood Tranf: No (N/A) Family Medical History Reviewed Nursing Family Hx Other Conditions/Hx SOCIAL HISTORY: -RARE ETOH USE -DENIES DRUG USE -SMOKED 1 PPD, QUIT 1977 SURGICAL HISTORY: -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 STREET. Review of Systems Constitutional: No chills, No fever EENTM: no symptoms reported Respiratory: no symptoms reported Cardiovascular: no symptoms reported Gastrointestinal: see HPI Genitourinary: no symptoms reported Musculoskeletal: no symptoms reported Skin: no symptoms reported Psychiatric/Neurological: No Symptoms Reported Physical Exam Physical Exam Vital Signs Vital Signs - First Documented 02/17/22 02/18/22 22:55 04:04 Temp 36.4 Pulse 77 Resp 20 B/P (MAP) 139/80 (99) Pulse Ox 98 O2 Delivery Room Air FiO2 21 Capillary Refill : Less Than 3 Seconds Height, Weight, BMI Height: 6'1.00" Weight: 213lbs. 0.0oz. [id number]; 30.61 BMI Method:Stated General Appearance: No Apparent Distress, WD/WN HEENT: PERRL/EOMI, Moist Mucous Membranes; No Scleral Icterus (L), No Scleral Icterus (R) Neck: Normal Inspection, Supple Respiratory: Lungs Clear, No Accessory Muscle Use, No Respiratory Distress Cardiovascular: Regular Rate, Rhythm, No JVD, No Murmur Gastrointestinal: Normal Bowel Sounds, Non Tender, Soft Neurologic/Psychiatric: Alert, Oriented x3 Skin: Normal Color, Warm/Dry Results Results/Procedures Labs Laboratory Tests 02/17/22 23:01 02/18/22 05:57 Patient resulted labs reviewed. Imaging: Reviewed Imaging Report Imaging [facility], [place] NAME: REHAN ARELLANO [facility] REC#: [id number] PT STATUS: ADM Vicki : 1950 PHYSICIAN: ARIEL SIU MD ADMIT DATE: 02/18/22/ Signed Date of Exam:02/17/22 CT ABDOMEN/PELVIS W PROCEDURE: CT abdomen and pelvis with contrast. TECHNIQUE: Multiple contiguous axial images were obtained through the abdomen and pelvis after administration of intravenous contrast. Auto Exposure Controls were utilized during the CT exam to meet ALARA standards for radiation dose reduction. All CT scans use one or more of the following dose optimizing techniques: automated exposure control, MA and/or KvP adjustment based on patient size and exam type or iterative reconstruction. INDICATION: Abdominal pain and distention. FINDINGS: There is a hepatic steatosis. Gallbladder and bile duct are normal. Pancreas is normal. Spleen is not enlarged. The adrenal glands are normal. There is a cyst off the left kidney in the upper pole measuring 4 cm. There is no hydronephrosis or calculi. Stomach is distended and filled with food and fluid. Proximal small bowel is distended and fluid-filled. There is some fecalization in the distal jejunum. The ileum is decompressed consistent with partial small bowel obstruction. The colon shows very little stool or gas. There is no free air or free fluid. Bladder is nondistended. No pelvic masses. No adenopathy of pathologic size. There is an anastomotic suture line in the rectosigmoid colon. Lumbosacral spine shows good alignment without evidence of compression fracture. IMPRESSION: 1. Distended stomach and proximal small bowel with fecalization of content in the distal jejunum consistent with chronic partial small bowel obstruction. These findings are in agreement with the preliminary report. Dictated by: Dictated on workstation # [id number] Dict: 02/18/2245 Trans: 02/18/22918 [facility] [id number] Interpreted by: NÉSTOR HOFF MD Electronically signed by: NÉSTOR HOFF MD 02/18/22918 Assessment/Plan Admission Diagnosis partial SBO Admission Status: Observation Assessment and Plan partial SBO Now resolved had BM this AM Advance diet Surgery consulted, appreciate recs May DC home this evening if doing well UTI Continue Rocephin HTN BPH Continue home meds as appropriate DVT ppx: SCDs Diagnosis/Problems Diagnosis/Problems (1) Bowel obstruction Status: Acute Qualifiers: Intestinal obstruction type: unspecified Intestinal obstruction extent: partial Qualified Codes: K56.600 - Partial intestinal obstruction, unspecified as to cause (2) UTI (urinary tract infection) Qualifiers: Urinary tract infection type: acute cystitis Hematuria presence: without hematuria Qualified Codes: N30.00 - Acute cystitis without hematuria (3) HTN (hypertension) Status: Chronic Qualifiers: Hypertension type: primary hypertension Qualified Codes: I10 - Essential (primary) hypertension (4) BPH associated with nocturia Status: AKILA Lezama MD Feb 18, 2022 10:06 am
[2022-02-18] MEDS ORDERED: POLY17PO6 PO (11:32)
[2022-02-18] MEDS ORDERED: CEPH500T PO (13:53)
--- NOTE | 2022-02-18 13:54 | Discharge Inst-Simple/Standard ---
Discharge Inst-Standard Discharge Medications New, Converted or Re-Newed RX: Transmitted to Pharmacy Patient Instructions/Follow Up Plan of Care/Instructions/FU: Please continue to take your medications as written. Please follow up with your primary care doctor to follow up this hospital stay. Activity as Tolerated: Yes Discharge Diet: Soft Diet Return to The Hospital For: Chest pain, elevated blood sugars, abdominal pain, nausea, vomiting, shortness of breath, fever, weakness, if you feel you are getting worse. AKILA HOROWITZ MD Feb 18, 2022 13:54
--- NOTE | 2022-02-18 15:42 | Discharge Inst-Surgical ---
D/C Lap Instructions-JOSEPH Follow Up PRN Activity as tolerated Low residue diet for next 2 weeks. Avoid Alcohol, Caffeine, Spicy [place] and Acid foods. Drink 64 fluid oz or more of fluids per day. Symptoms to Report: Fever over 101 degree F, Nausea/Vomiting If any problems/questions: Contact your physician or go to Emergency Room CHELSEY RUIZ MD Feb 18, 2022 15:42
--- NOTE | 2022-02-18 16:18 | CONSULTATION REPORT ---
ADMITTING PHYSICIAN: Dr. Anjelica Hughes. ATTENDING PRIMARY CARE PHYSICIAN: Dr. Kel Juarez. HISTORY OF PRESENT ILLNESS: The patient is a 71-year-old male who was admitted for abdominal distention, crampy abdominal pain as well as intermittent episodes of nausea; however, no vomiting. He has had a history of small bowel obstructions, which have resolved on their own over time. He underwent a low anterior sigmoid colorectal resection due to diverticular disease in the past. He also does have a number of other medical comorbidities including hypertension and atrial fibrillation. Since being admitted and placed on bowel rest, IV fluids and early ambulation, he has been able to have a bowel movement with less crampy abdominal pain and less abdominal distention. The initial CT scan upon admission did show some dilated stomach as well as some mild dilatation of the small bowel, likely consistent with a partial small-bowel obstruction. Again, since being admitted, he has had a bowel movement and is tolerating a low residue diet without any difficulty. PAST MEDICAL HISTORY: Symptomatic diverticulosis and diverticulitis, atrial fibrillation, bilateral lower extremity edema, hypertension, benign prostatic hypertrophy, left groin low-grade fibrosarcoma. PAST SURGICAL HISTORY: Excision low-grade fibrosarcoma left groin 1992, excision benign abdominal wall mass 04/1994, low anterior colorectal resection 04/2002. ALLERGIES: NO KNOWN DRUG ALLERGIES. MEDICATIONS: Aspirin 81 mg daily, cephalexin 500 mg b.i.d., diltiazem 240 mg daily, lisinopril 10 mg daily, MiraLax 17 grams daily, tamsulosin 0.4 mg daily. SOCIAL HISTORY: Previous smoke, quit 1977. Does not report any drinking alcohol. VITAL SIGNS: Temperature 36.2, blood pressure 158/71, pulse 61, respirations 18, pulse ox 99% on room air. REVIEW OF SYSTEMS: Well-nourished male, currently in no acute distress. He is not experiencing any shortness of breath or difficulty breathing. No chest pain, palpitations, diaphoresis. No nausea, vomiting. No abdominal distention or crampy pain. He is currently tolerating clear liquids, has had a bowel movement. No red blood per rectum, no dark tarry stools. No nausea, vomiting. No hematemesis, no coffee-ground emesis. No fever or chills. No recent inadvertent weight loss. All other review of systems negative. PHYSICAL EXAMINATION: LUNGS: Few scattered rales bilaterally. HEART: Regular, no murmurs. EXTREMITIES: No lower extremity edema. Negative Homans sign. HEENT: No scleral icterus. No cervical lymphadenopathy. ABDOMEN: Soft, nondistended. There is mild discomfort upon deep palpation. No peritoneal signs. No hernias. SKIN: Warm and dry. LABORATORY DATA: WBC 8.8, hemoglobin 13.3, hematocrit 40, platelets 180, BUN 15, creatinine 1.05. Liver function enzymes normal. Urinalysis, positive nitrite as well as leukocyte esterase. ASSESSMENT AND PLAN: A 71-year-old male with a partial small-bowel obstruction, which has resolved with conservative management with IV fluids and bowel rest. This may have been initiated by urinary tract infection and we will advance his diet to a low residue diet and if he is able to tolerate this, he may be discharged home today. We will also recommend him to continue the low residue diet for the next two weeks. Job ID: [id number] DocumentID: [id number] Dictated Date: 02/18/2022 15:40:48 Veneer Clipper Date: 02/18/2022 16:16:00 Dictated By: CHELSEY RUIZ MD
[2022-02-18] MEDS ORDERED: cefTRIAXone 1 GM/50 ML (PRE-MIX) IV SCH (21:00)
== END 2022-02-18 17:32 | disposition home or self-care (01) ==
LOC: EDUNIT# 22:49 → ER 22:51 → 4TH 22:52 → UNDOADMOB 02-18 02:21 → 4TH 02-18 02:21 → UNDODISOB 02-18 17:32
PROVIDERS: ADMIT Internal Medicine; ATTEND Internal Medicine
DX: K56.600 Partial intestinal obstruction, unspecified as to cause (principal); N30.00 Acute cystitis without hematuria; I10 Essential (primary) hypertension; N40.1 Benign prostatic hyperplasia with lower urinary tract symptoms; R35.1 Nocturia; Z87.891 Personal history of nicotine dependence
CPT/HCPCS: 36415; 74177; 80048; 80053; 81000; 83605; 83690; 83735; 84484; 85007; 85025; 85027; 87077; 87088; 96361; 96376; G0378

== ENCOUNTER → 2022-06-16 | Outpatient (CLI) | payer BC ==
[~2022-06-16] MED LIST changes: +CEPH500T PO; +POLY17PO6 PO
== END ==
LOC: CARD 09:07
PROVIDERS: ATTEND Internal Medicine Cardiovascular Disease
DX: R93.1 Abnormal findings on diagnostic imaging of heart and coronary circulation (principal); I35.1 Nonrheumatic aortic (valve) insufficiency; I51.7 Cardiomegaly
CPT/HCPCS: 93306

== ENCOUNTER → 2022-06-30 | Outpatient (CLI) | payer BC ==
[~2022-06-30] MED LIST changes: +CATHETER FLUSH 10 ML SYR IVP PRN; +REGADENOSON 0.4 MG/5 ML SYR (LEXISCAN) IV ONE
[2022-06-30 09:21] VITALS: BP 151/81
--- NOTE | 2022-06-30 12:50 | STRESS TEST ---
DATE OF SERVICE: 06/30/2022 RESTING AND POST REGADENOSON TECHNETIUM-99M TETROFOSMIN SPECT CT IMAGING ORDERING PHYSICIAN: Cori Garcia APRN. PRIMARY PHYSICIAN: Dr. Kel Juarez. CLINICAL DIAGNOSIS: Abnormal electrocardiogram. Baseline images were carried out after injection of 10.95 mCi of technetium-99m tetrofosmin. This was followed by 0.4 mg regadenoson and 30.7 mCi of technetium-99m tetrofosmin for stress imaging. The electrocardiogram showed sinus rhythm with right bundle branch block. It did not change significantly with the regadenoson infusion. The patient noted dizziness after regadenoson, which resolved in a few minutes. Review of images at rest and following stress indicates a small basal inferior perfusion defect, which appears transient. Gated images show normal global left ventricular systolic function with normal regional wall motion. Left ventricular ejection fraction is calculated to be 56%. CONCLUSIONS: 1. This study is suggestive of a small amount of basal inferior ischemia (SDS 4). 2. Normal regional wall motion. 3. Normal global left ventricular systolic function with a calculated ejection fraction of 56%. Job ID: [id number] DocumentID: [id number] Dictated Date: 06/30/2022 12:20:44 Tailor'S Aide Date: 06/30/2022 12:48:00 Dictated By: SUSANNAH CONTI MD; NADEEM; CEDRICP; CEDRICC; DESIRE
== END ==
LOC: CARD 07:13
PROVIDERS: ATTEND Nurse Practitioner Family
DX: R93.1 Abnormal findings on diagnostic imaging of heart and coronary circulation (principal)
CPT/HCPCS: 78452; 93017; A9502